=== PATIENT | female | born 1965 | race Two or more races ===

== ENCOUNTER 2022-09-16 14:20 | Inpatient (IN) | payer MEDICAID ==
[~2022-09-16] VITALS: Ht 149.9 cm; Wt 45.6 kg
[~2022-09-16 14:20] MED LIST: OMEP20CA74 PO
[2022-09-16 15:36] LABS: Basophils # (auto) 0 10 ^3/uL (0-0.2); Basophils % (auto) 0.3 % (0.0-2.0); Eosinophils # (auto) 0 10 ^3/uL (0-0.8); Eosinophils % (auto) 0.8 % (0.0-7.0); Lymphocytes # (auto) 1.4 10 ^3/uL (0.4-5.4); Lymphocytes % (auto) 32.5 % (10.0-50.0); Monocytes # (auto) 0.3 10 ^3/uL (0-1.3); Monocytes % (auto) 6.8 % (0.0-12.0); Neutrophils # (auto) 2.5 10 ^3/uL (1.6-8.6); Neutrophils % (auto) 59.6 % (37.0-80.0); Nucleated Red Blood Cells % 0.1 %; White Blood Cell 4.2 10^3/uL (4.4-10.8)
[2022-09-16 15:37] LABS: Hematocrit 26.7 % (36.0-46.0); Hemoglobin 8.9 g/dL (12.2-16.2); Mean Corpuscular Hemoglobin 31.3 pg (28.0-32.0); Mean Corpuscular Hgb Conc. 33.4 g/dL (32.0-36.0); Mean Corpuscular Volume 93.6 fL (80.0-100.0); Red Blood Cells 2.85 10^6/uL (4.0-5.20); Red Cell Distribution Width 14.5 % (11.8-14.3)
[2022-09-16 15:48] LABS: Albumin 3.4 g/dL (3.4-5.0); Calcium 8.5 mg/dL (8.5-10.1); Potassium 4.1 mmol/L (3.5-5.1)
[2022-09-16 15:50] VITALS: PULSE 61; RESP 10; O2SAT 95
[2022-09-16 15:52] LABS: BUN/Creatinine Ratio 14.7 (10.0-20.0); Bilirubin, Total 0.4 mg/dL (0.2-1.0); Total Protein 6.8 g/dL (6.4-8.2)
[2022-09-16] MEDS ORDERED: SODIUM CHLORIDE 0.9% 1,000 ML IV ONE (16:30)
[2022-09-16] MEDS ORDERED: ALBUTEROL SULF 2.5 MG/0.5ML(0.5%) NEB SOLN NEB ONE (16:45)
[2022-09-16] MEDS ORDERED: IPRATROPIUM BROM 0.5 MG/2.5ML INH SOL NEB ONE (16:45)
[2022-09-16] MEDS ORDERED: cefTRIAXone 1GM/50ML D5W 50 ML IV ONE (16:45)
[2022-09-16 17:27] LABS: Urine Bacteria NONE SEEN /hpf (None Seen); Urine Blood Negative /uL (Negative); Urine Mucus FEW (None Seen); Urine Specific Gravity 1.018 (1.001-1.035); Urine WBC 1 /hpf (0 - 5)
[2022-09-16 19:30] VITALS: PULSE 62; RESP 18; O2SAT 95
[2022-09-16] MEDS ORDERED: ALBUTEROL SULF 2.5 MG/0.5ML(0.5%) NEB SOLN NEB PRN (21:00)
[2022-09-16] MEDS ORDERED: HYDROcodone-ACET 5/325MG TAB PO PRN ×2 (21:00→22:30)
[2022-09-16] MEDS ORDERED: ONDANSETRON HCL 4 MG/2 ML VIAL IV PRN ×2 (21:00→22:30)
[2022-09-16] MEDS ORDERED: IPRATROPIUM BROM 0.5 MG/2.5ML INH SOL NEB PRN (21:00)
[2022-09-16] MEDS ORDERED: ACETAMINOPHEN 325 MG TAB PO PRN ×2 (21:00→22:30)
[2022-09-16] MEDS ORDERED: DOCUSATE SOD 100 MG CAP PO PRN (21:00)
[2022-09-16] MEDS ORDERED: DexAMETHasone SOD PHOS 10MG/1ML VIAL INJ IV ONE (21:00)
[2022-09-16] MEDS ORDERED: AZITHROMYCIN 500MG/ 250ML 250 ML IV ONE (21:00)
[2022-09-16 21:06] VITALS: BP 106/45; PULSE 73; RESP 19; O2SAT 93
[2022-09-16] MEDS ORDERED: NITROGLYCERIN 0.4 MG SL TAB SL PRN (22:30)
[2022-09-16] MEDS ORDERED: TEMAZEPAM 15 MG CAP PO PRN (22:30)
[2022-09-16] MEDS ORDERED: MORPHINE SULFATE INJ 2 MG/ml SYRG IV PRN ×2 (22:30)
[2022-09-16 22:49] VITALS: O2SAT 97
[2022-09-17] VITALS (10 sets, daily range): BP systolic 84–107; BP diastolic 42–69; PULSE 56–80; RESP 16–20; TEMP 97.6–98.4; O2SAT 91–100
[2022-09-17 06:39] LABS: Basophils # (auto) 0 10 ^3/uL (0-0.2); Eosinophils # (auto) 0 10 ^3/uL (0-0.8); Hematocrit 27.7 % (36.0-46.0); Hemoglobin 9.6 g/dL (12.2-16.2); Lymphocytes # (auto) 0.6 10 ^3/uL (0.4-5.4); Lymphocytes % (auto) 11.5 % (10.0-50.0); Mean Corpuscular Hemoglobin 32.5 pg (28.0-32.0); Mean Corpuscular Hgb Conc. 34.5 g/dL (32.0-36.0); Mean Corpuscular Volume 94.2 fL (80.0-100.0); Monocytes # (auto) 0.1 10 ^3/uL (0-1.3); Monocytes % (auto) 1.1 % (0.0-12.0); Neutrophils # (auto) 4.4 10 ^3/uL (1.6-8.6); Neutrophils % (auto) 87.4 % (37.0-80.0); Red Blood Cells 2.94 10^6/uL (4.0-5.20); Red Cell Distribution Width 14.1 % (11.8-14.3); White Blood Cell 5.1 10^3/uL (4.4-10.8)
[2022-09-17 06:49] LABS: Albumin 3.3 g/dL (3.4-5.0); Calcium 8.5 mg/dL (8.5-10.1); Potassium 4.1 mmol/L (3.5-5.1)
[2022-09-17 06:54] LABS: BUN/Creatinine Ratio 14.5 (10.0-20.0); Bilirubin, Total 0.2 mg/dL (0.2-1.0); Total Protein 6.9 g/dL (6.4-8.2)
[2022-09-17] MEDS ORDERED: LEVO25TA6 PO (09:37)
[2022-09-17] MEDS ORDERED: GAB100C PO (09:37)
[2022-09-17] MEDS ORDERED: TIZA-326 PO (09:37)
[2022-09-17] MEDS ORDERED: TIZANIDINE HYDROCHLORIDE PO SCH (10:00)
[2022-09-17] MEDS ORDERED: AZITHROMYCIN 500MG/ 250ML 250 ML IV SCH (10:00)
[2022-09-17] MEDS: levoFLOXacin 500MG 100 ML IV SCH (10:04)
[2022-09-17] MEDS: ASCORBIC ACID 500 MG TAB PO SCH ×2 (10:10→22:08)
[2022-09-17] MEDS: FAMOTIDINE (10MG/ML) 2ML VL IV SCH (10:10)
[2022-09-17] MEDS: MULTIPLE VITAMIN TAB PO SCH (10:10)
[2022-09-17] MEDS: LEVOTHYROXINE SODIUM 25 MCG TAB PO SCH (10:13)
[2022-09-17] MEDS: ZINC SULFATE 220mg CAP or TAB PO SCH (10:15)
[2022-09-17] MEDS ORDERED: GABAPENTIN 100 MG CAP PO SCH (14:00)
[2022-09-18 05:00] VITALS: BP 97/52; PULSE 59; RESP 18; TEMP 98; O2SAT 95
[2022-09-18 08:00] VITALS: BP 97/63; PULSE 58; RESP 18; TEMP 98; O2SAT 97
[2022-09-18] MEDS: levoFLOXacin 500MG 100 ML IV SCH (08:33)
[2022-09-18] MEDS: MULTIPLE VITAMIN TAB PO SCH (08:34)
[2022-09-18] MEDS: FAMOTIDINE (10MG/ML) 2ML VL IV SCH (08:34)
[2022-09-18] MEDS: ASCORBIC ACID 500 MG TAB PO SCH (08:34)
[2022-09-18] MEDS: LEVOTHYROXINE SODIUM 25 MCG TAB PO SCH (08:34)
[2022-09-18] MEDS: ZINC SULFATE 220mg CAP or TAB PO SCH (08:34)
[2022-09-18 09:00] VITALS: BP 103/68; PULSE 64; RESP 18; TEMP 98; O2SAT 97
[2022-09-18] MEDS ORDERED: AZIT500T66 PO (10:09)
[2022-09-18 10:10] VITALS: O2SAT 97
[2022-09-18 12:15] VITALS: BP 97/63; PULSE 64; RESP 18; TEMP 98; O2SAT 97
[2022-09-18 12:56] VITALS: BP 103/66; PULSE 62; RESP 18; TEMP 98.1; O2SAT 96
== END 2022-09-18 13:45 | disposition home or self-care (01) | DRG 137 ==
LOC: ER 14:20 → TELE 22:16 → TELE-CENTR 23:52
PROVIDERS: ADMIT Internal Medicine; ATTEND Internal Medicine
DX: J15.6 Pneumonia due to other Gram-negative bacteria (principal); J96.01 Acute respiratory failure with hypoxia; E03.9 Hypothyroidism, unspecified; J98.11 Atelectasis; D64.9 Anemia, unspecified; Z88.0 Allergy status to penicillin; Z82.49 Family history of ischemic heart disease and other diseases of the circulatory system; Z80.0 Family history of malignant neoplasm of digestive organs; Z79.899 Other long term (current) drug therapy; Z87.440 Personal history of urinary (tract) infections
CPT/HCPCS: 36415; 71045; 71250; 80053; 81001; 83605; 84484; 85025; 85379; 86850; 86900; 86901; 94640; 96361; 96365; 96366; 96367; G0378; J0696; J1100; J1956; J3490

== ENCOUNTER 2024-10-02 18:06 | Inpatient (IN) | payer MEDICAID ==
[~2024-10-02] VITALS: Ht 152.4 cm; Wt 51.1 kg
[~2024-10-02 18:06] MED LIST changes: +AZIT500T66 PO; +FERR1TAB8 PO; +LEVO25TA6 PO; +LEVO50TA7 PO; +TIZA1TAB20 PO
[2024-10-02] MEDS: SODIUM CHLORIDE 0.9% 1,000 ML IV ONE (18:52)
[2024-10-02 18:53] VITALS: PULSE 61; RESP 20; O2SAT 98
--- NOTE | 2024-10-02 18:55 | ED.PDOC ---
History of Present Illness HPI Comments 59 y/o [place]an speaking F presents for 2x week history of multiple dizzy spells and syncopal episodes, with associated headache, lightheadedness, fatigue, shortness of breath, and bilateral ear ringing sensations. Patient is a poor historian. She endorses on onset of symptoms whenever standing up prior to then passing out. Last syncopal episode is reported to have taken place, last night, while in the bathroom, where she admits to falling from a standing position and hitting her head. She was advised to come to ED to r/o anemia by her PCP. Patient has a relevant history of anemia, colitis, gastritis, PUD, and hypothyroidism. No recent sick contact, travel, injuries, or previous similar events endorsed. She denies any nausea, vomiting, known bleeding, fever, chills, or further associated symptoms. Time Seen by MD: 18:25 Primary Care Provider: Unknown Reviewed Notes: Nurses Notes, Medications, Allergies Allergies: Coded Allergies: Penicillins (Verified Allergy, Unknown, 01/20/16) Home Meds Active Scripts Azithromycin (Azithromycin) 500 Mg Tab, 500 MG PO DAILY for 7 Days, #7 TAB Prov:[employer] 09/18/22 Omeprazole (PRILOSEC) 20 Mg Cap, 20 MG PO DAILY for 30 Days Prov:SHIVA ROCHA N.P. 02/20/13 Reported Medications Levothyroxine Sodium (Levothyroxine Sodium) 25 Mcg Tab, 1 TAB PO DAILY 09/17/22 Information Source: Patient Mode of Arrival: Ambulatory Severity: Moderate Timing: Weeks Duration: Intermittent Prehospital treatment: None Review of Systems: REVIEW OF SYSTEMS: No fever, no chills, or fatigue HEENT: Bilateral ear ringing sensations, no sore throat, no earache, no congestion, no neck pain. Cardiac: Lightheadedness, syncope, no chest pain. No palpitations. Lungs: Shortness of breath, no cough. GI: No nausea, no vomiting, no diarrhea, no constipation, no abdominal pain : No dysuria, frequency, or urgency. No hematuria. Musculoskeletal: No joint pain , no joint swelling, no extremity edema. Skin: No rash, no itching. Neuro: Dizziness, headache, fatigue, no weakness Vital Signs Vital Signs Date Time Temp Pulse Resp B/P (MAP) Pulse Ox O2 Delivery O2 Flow Rate FiO2 6/11/25 18:53 61 20 98 Room Air* 0 21 10/02/24 18:53 98.0 109/61 (77) 98.0 Physical Exam General: Awake, alert and oriented. No acute distress. Skin: Skin in warm, dry and intact. Appropriate color for ethnicity, with exception of face, which is pallor. HEENT: The head is normocephalic and atraumatic. Face is pallor. Conjunctivae are clear without exudates or hemorrhage. Sclera is non-icteric. EOM are intact. No signs of nystagmus. Eyelids are normal in appearance without swelling or lesions. Dry lips. Neck: The neck is supple with normal range of motion. No JVD. Cardiac: Bradycardic heart rate but normal rhythm. No murmurs, gallops, or rubs are auscultated. Respiratory: No signs of respiratory distress. Lung sounds are clear in all lobes bilaterally without rales, rhonchi, or wheezes. Abdominal: Abdomen is soft, non-tender without distention, guarding or rigidity. Bowel sounds are present and normoactive in all four quadrants. Extremities: Upper and lower extremities are atraumatic in appearance without deformity or edema. Neurological: The patient is awake, alert and oriented to person, place, and time with normal speech. Speech is clear. There is no facial asymmetry. Psychiatric: Appropriate mood and affect. Good judgement and insight. 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 Was a procedure done?: No Differential Dx Considerations may include: Differential diagnoses considered include but are not limited to cardiac structural disease, arrhythmia, acute coronary syndrome, orthostasis, pulmonary embolism, dissection, seizure, basilar stroke, other. X-Ray, Labs, Meds, VS Vital Signs Date Time Temp Pulse Resp B/P (MAP) Pulse Ox O2 Delivery O2 Flow Rate FiO2 10/02/24 18:53 61 20 98 Room Air* 0 21 10/02/24 18:53 98.0 54 19 109/61 (77) 98 98.0 6/11/25 18:35 55 10/02/24 18:19 98.3 57 14 94/62 (73) 97 98.3 Lab Test 10/02/24 22:00 10/02/24 18:39 Range/Units Urine Color Dark-yellow Yellow Urine Clarity Clear Clear Urine pH 5.5 5.0-9.0 Urine Specific [place] 1.029 1.001-1.035 Urine Protein Trace H Negative Urine Ketones Trace Negative Urine Blood Negative Negative /uL Urine Nitrite Negative Negative Urine Bilirubin Negative Negative Urine Urobilinogen Normal Negative mg/dL Urine Leukocyte Esterase Negative Negative /uL Urine RBC 17 0 - 4 /hpf Urine Microscopic WBC 1 0-5 /HPF Urine Squamous Epithelial Cells Few <5 /hpf Urine Bacteria None seen None Seen /hpf Urine Mucus Few None Seen Urine Yeast (Budding) Moderate None Seen /hpf Urine Glucose Normal Normal mg/dL White Blood Count 4.5 4.4-10.8 10^3/uL Red Blood Count 3.32 L 4.0-5.20 10^6/uL Hemoglobin 10.5 L 12.2-16.2 g/dL Hematocrit 31.7 L 36.0-46.0 % Mean Corpuscular Volume 95.2 80.0-100.0 fL Mean Corpuscular Hemoglobin 31.6 28.0-32.0 pg Mean Corpuscular Hemoglobin Concent 33.2 32.0-36.0 g/dL Red Cell Distribution Width 14.4 H 11.8-14.3 % Platelet Count 297 140-450 10^3/uL Mean Platelet Volume 7.4 6.9-10.8 fL Neutrophils (%) (Auto) 61.5 37.0-80.0 % Lymphocytes (%) (Auto) 31.2 10.0-50.0 % Monocytes (%) (Auto) 6.3 0.0-12.0 % Eosinophils (%) (Auto) 0.7 0.0-7.0 % Basophils (%) (Auto) 0.3 0.0-2.0 % Neutrophils # (Auto) 2.8 1.6-8.6 10 ^3/uL Lymphocytes # (Auto) 1.4 0.4-5.4 10 ^3/uL Monocytes # (Auto) 0.3 0-1.3 10 ^3/uL Eosinophils # (Auto) 0 0-0.8 10 ^3/uL Basophils # (Auto) 0 0-0.2 10 ^3/uL Nucleated Red Blood Cells 0.1 % Sodium Level 143 136-145 mmol/L Potassium Level 3.5 3.5-5.1 mmol/L Chloride Level 109 H 98-107 mmol/L Carbon Dioxide Level 25 20-31 mmol/L Anion Gap 9 5-15 Blood Urea Nitrogen 21 9-23 mg/dL Creatinine 0.87 0.550-1.02 mg/dL Glomerular Filtration Rate Calc 76 >90 mL/min BUN/Creatinine Ratio 24.1 H 10.0-20.0 Serum Glucose 90 74-106 mg/dL Calcium Level 9.9 8.7-10.4 mg/dL Iron Level Pending Total Iron Binding Capacity Pending Percent Iron Saturation Pending Total Bilirubin 0.5 0.2-1.0 mg/dL Aspartate Amino Transferase (AST) 13 13-40 U/L Alanine Aminotransferase (ALT) 11 7-40 U/L Alkaline Phosphatase 117 H 46-116 U/L Troponin I High Sensitivity < 3 L </=34 ng/L B-Type Natriuretic Peptide 24.45 0-100 pg/mL Total Protein 7.0 5.7-8.2 g/dL Albumin 4.4 3.2-4.8 g/dL Thyroid Stimulating Hormone (TSH) 1.40 0.55-4.78 uIU/mL Current Medications Medications (Trade) Dose Ordered Sig/Nancy Route Start Time Stop Time Status Last Admin Sodium Chloride 1,000 ml @ 1,000 mls/hr Q1H ONCE IV 10/02/24 18:30 10/02/24 19:29 DC 10/02/24 18:52 Time of 1ST Reevaluation: 18:55 Reevaluation 1ST: Unchanged Patient Education/Counseling: Treatment, Other (Need for admission) Family Education/Counseling: No Family Present Departure 1 Departure Time of Disposition: 22:21 Impression: Primary Impression: Syncope Disposition: HOME / SELF CARE / HOMELESS Condition: Stable Comments 59 year old female with multiple syncopal episode last night and continued dizziness throughout the day. Patient admitted to hospitalist service for further treatment, evaluation and monitoring. Extensive evaluation was performed in attempt to identify or rule out: (See differential diagnosis section) The following tests were ordered, and results were reviewed by me and discussed with patient: (See diagnostic results section) The following test were independently interpreted by me: EKG I reviewed and agreed with the following test results read by other providers: N/A I reviewed the following notes from the pt's past medical encounters: September 03, 2013 and September 16, 2022 encounters for acute intractable abdominal pain and pneumonia, respectively. Additional information was gathered from interviewing the following independent historians: N/A Discussion of management or test interpretation with external physician/other qualified health health care consultant: Chest x-ray Addressed an acute or chronic illness that poses a threat to life or bodily function: Syncope, anemia Decision regarding hospitalization or escalation of hospital level of care: Risk and benefits of admission for further treatment of patient's condition was considered. Due to patient's current clinical condition, high risk of decline and poor outcome if discharged and need for further inpatient management and monitoring, patient will be admitted to the hospital. Drug therapy requiring intensive monitoring for toxicity: N/A Parenteral controlled substances: N/A Decision regarding elective major surgery with identified patient or procedure risk factors: N/A Decision regarding emergency major surgery: N/A Decision not to resuscitate or to de-escalate care because of poor prognosis: N/A Diagnosis or treatment significantly limited by social determinants of health: N/A Critical Care Note Critical Care Time?: No Stability Stability form required: No Heart Score Heart Score: Heart Score Response (Comments) Value History N/A 0 EKG N/A 0 Age N/A 0 Risk Factors N/A 0 Troponin N/A 0 Total 0 I personally scribed for KARL VARGHESE MD ([email or web address]) on 10/02/24 at 18:55. Electronically submitted by Kyaw Elaine ([email or web address]). KARL VARGHESE MD Oct 02, 2024 18:55
[2024-10-02 19:04] LABS: Basophils # (auto) 0 10 ^3/uL (0-0.2); Basophils % (auto) 0.3 % (0.0-2.0); Eosinophils # (auto) 0 10 ^3/uL (0-0.8); Eosinophils % (auto) 0.7 % (0.0-7.0); Hematocrit 31.7 % (36.0-46.0); Hemoglobin 10.5 g/dL (12.2-16.2); Lymphocytes # (auto) 1.4 10 ^3/uL (0.4-5.4); Lymphocytes % (auto) 31.2 % (10.0-50.0); Mean Corpuscular Hemoglobin 31.6 pg (28.0-32.0); Mean Corpuscular Hgb Conc. 33.2 g/dL (32.0-36.0); Mean Corpuscular Volume 95.2 fL (80.0-100.0); Monocytes # (auto) 0.3 10 ^3/uL (0-1.3); Monocytes % (auto) 6.3 % (0.0-12.0); Neutrophils # (auto) 2.8 10 ^3/uL (1.6-8.6); Neutrophils % (auto) 61.5 % (37.0-80.0); Nucleated Red Blood Cells % 0.1 %; Platelet Count (auto) 297 10^3/uL (140-450); Red Blood Cells 3.32 10^6/uL (4.0-5.20); Red Cell Distribution Width 14.4 % (11.8-14.3); White Blood Cell 4.5 10^3/uL (4.4-10.8)
[2024-10-02 19:21] LABS: Alanine Aminotransferase 11 U/L (7-40); Albumin 4.4 g/dL (3.2-4.8); Anion Gap 9 (5-15); Aspartate Aminotransferase 13 U/L (13-40); BUN/Creatinine Ratio 24.1 (10.0-20.0); Blood Urea Nitrogen 21 mg/dL (9-23); Calcium 9.9 mg/dL (8.7-10.4); Carbon Dioxide 25 mmol/L (20-31); Glucose 90 mg/dL (74-106); Sodium 143 mmol/L (136-145)
[2024-10-02 19:22] LABS: Bilirubin, Total 0.5 mg/dL (0.2-1.0)
[2024-10-02 19:23] LABS: Alkaline Phosphatase 117 U/L (46-116); Chloride 109 mmol/L (98-107); Potassium 3.5 mmol/L (3.5-5.1)
--- NOTE | 2024-10-02 21:16 | DVH ---
EXAM: XY CHEST XRAY 1 VIEW CLINICAL HISTORY: syncope TECHNIQUE: Single AP view of the chest WID: COMPARISON: XY CHEST XRAY 1 VIEW on DOS: 09/16/22 FINDINGS: Lines and tubes: None Chest: The heart size and pulmonary vasculature is within normal limits. No pleural effusion, pneumothorax, or consolidation. The osseous structures are grossly intact. Healed posterior left 8th rib fracture. IMPRESSION: No acute cardiopulmonary abnormality.
[2024-10-02 22:06] LABS: Urine Bacteria None Seen /hpf (None Seen)
[2024-10-02 23:17] LABS: Urine Blood Negative /uL (Negative); Urine Budding Yeast MODERATE /hpf (None Seen); Urine Clarity Clear (Clear); Urine Color Dark-Yellow (Yellow); Urine Mucus FEW (None Seen); Urine Protein, UAD TRACE (Negative); Urine Specific Gravity 1.029 (1.001-1.035); Urine Squamous Epithelial Cell FEW /hpf (<5); Urine Urobilinogen Normal (Negative); Urine WBC 1 /HPF (0-5); Urine pH 5.5 (5.0-9.0)
[2024-10-02] MEDS ORDERED: DOCUSATE SOD 100 MG CAP PO PRN (23:30)
[2024-10-02] MEDS ORDERED: MORPHINE SULFATE INJ 2 MG/ml SYRG IV PRN (23:30)
[2024-10-02] MEDS ORDERED: NITROGLYCERIN 0.4 MG SL TAB SL PRN (23:30)
[2024-10-02] MEDS ORDERED: ONDANSETRON HCL 4 MG/2 ML VIAL IV PRN (23:30)
[2024-10-03] VITALS (7 sets, daily range): BP systolic 94–138; BP diastolic 52–71; PULSE 50–75; RESP 14–18; TEMP 97.5–98.3; O2SAT 96–99
--- NOTE | 2024-10-03 00:19 | DVH ---
CLINICAL HISTORY: Rule out acute stroke TECHNIQUE: Helical imaging carried out from skull base to vertex without intravenous contrast. This e xam was performed according to our departmental dose optimization program. Up-to-date CT equipment an d radiation dose reduction techniques are utilized as appropriate. CTDIVol: 52.87 mGy DLP: 935.07 mGy-cm WID: COMPARISON: None FINDINGS: Mild patchy low attenuation in the cerebral white matter consistent with nonspecific white matter dis ease. The ventricles and subarachnoid spaces are normal in size and configuration. There is no midline wilfred ft or mass effect. The mata white matter interfaces are maintained. The basal cisterns are patent. Th ere is no evidence of acute intracranial hemorrhage or extra-axial fluid collection. The mastoid air cells and visualized paranasal sinuses are well-aerated aside from mild frothy secretions in the righ t sphenoid sinus and mild mucosal thickening of the right maxillary sinus. IMPRESSION: 1. No acute intracranial abnormality. 2. Mild nonspecific white matter disease, likely related to chronic small-vessel ischemia.
[2024-10-03 00:50] LABS: % Iron Saturation 27.9 % (15-50)
[2024-10-03] MEDS: SODIUM CHLORIDE 0.9% 1,350 ML IV ONE (00:50)
[2024-10-03] MEDS: SODIUM CHLORIDE 0.9% 1,000 ML IV SCH (00:51)
[2024-10-03] MEDS: PANTOPRAZOLE 40 MG/10 ML VIAL INJ IV SCH (00:51)
[2024-10-03] MEDS: ATROPINE SULF 1 MG/10ml SYR IV ONE (02:30)
--- NOTE | 2024-10-03 02:38 | DVH ---
Clinical History: rule out DVT, high d dimer with lower Wells Score Comparison: None Technique: Duplex Doppler evaluation of the deep venous system of the right and left lower extremity from the co mmon femoral vein to the popliteal vein including color Doppler and spectral/pulsed waveform analysis was performed. Findings: The common femoral vein demonstrates appropriate compressibility and waveform variability. There is compressibility/patency of the great saphenous vein at the proximal thigh. The femoral vein demonstrates appropriate compressibility and waveform variability. The deep femoral vein demonstrates appropriate compressibility and waveform variability. The popliteal vein demonstrates appropriate compressibility and waveform variability. There is normal compressibility at the tibioperoneal trunk. Impression: 1. No right or deep venous thrombosis.
--- NOTE | 2024-10-03 02:41 | DVHHPRES ---
History of Present Illness Resident Creating Document: VANESSA GALLEGOS RESIDENT History of Present Illness Ms. Han, a 59-year-old [place]ian-speaking female with a history of anemia, gastrointestinal disorders (including PUD, gastritis, colitis), hypothyroidism, chronic back pain, likely osteoarthritis, Hernia Repair and Left oophorectomy presents with a two-week history of recurrent dizziness and syncopal episodes, typically triggered by standing, and accompanied by headache, lightheadedness, fatigue, shortness of breath, and bilateral ear ringing. Her most recent episode occurred the previous night in the bathroom, resulting in a fall and head injury. She denies nausea, vomiting, bleeding, fever, or recent illness. Due to concerns for underlying acute neurovascular conditions, she was referred to the ED by her PCP and has been admitted for further evaluation and monitoring. Admitted on telemetry floor, for continued dizziness and multiple syncopal epis odes, with differential diagnoses including syncope (cardiac or neurovascular), structural heart disease, hypovolemia, arrhythmia, acute coronary syndrome, orthostatic hypotension, posterior column disease, TIA, cerebellar/inner ear disorders, pulmonary embolism, aortic dissection, seizure, and basilar stroke. PCP Dr. Leiva, Pain Specialist Dr. Fernandez. Extremely poor historian. Past Medical History anemia, gastrointestinal disorders (including PUD, gastritis, colitis), hypothyroidism, chronic back pain, likely osteoarthritis Past Surgical History Hernia Repair and Left oophorectomy Family History: Other (non contributory ) Smoke: No ALCOHOL: none Drugs: None Lives: with Family (with sons. ) Domestic Violence: Neg Review of Systems Constitutional: Yes: Malaise; No: Fever, Chills, Sweats, Weakness, Other Eyes: No: Pain, Vision change, Conjunctivae inflammation, Eyelid inflammation, Other, Redness ENT: No: Ear pain, Ear discharge, Nose pain, Nose discharge, Nose congestion, Mouth pain, Mouth swelling, Throat pain, Throat swelling, Other Respiratory: No: Cough, Dry, Shortness of breath, SOB with excertion, Wheezing, Hemoptysis, Pleuritic Pain, Sputum, Wheezing, Other Cardiovascular: Lt Headedness; No: Chest Pain, Palpitations, Orthopnea, Paroxysmal Noc. Dyspnea, Edema, Other Gastrointestinal: No: Nausea, Vomiting, Abdominal Pain, Diarrhea, Constipation, Melena, Hematochezia, Other Genitourinary: No Dysuria, No Frequency, No Incontinence, No Hematuria, No Retention, No Other Musculoskeletal: back pain; No: other, neck pain, shoulder pain, arm pain, hand pain, leg pain, foot pain Skin: No: Rash, Lesions, Jaundice, Bruising, Other Neurological: Other (syncopy, dizzziness, presyncopy); No: Weakness, Numbness, Incoordination, Change in speech, Confusion, Seizures Allergies: Coded Allergies: Penicillins (Verified Allergy, Unknown, 01/20/16) Medications Current Medications Medications Dose Ordered Sig/Nancy Route Start Time Stop Time Status Last Admin Dose Admin Sodium Chloride 1,000 ml @ 120 mls/hr Q8H20M IV 10/02/24 23:30 Ondansetron HCl 4 mg Q4HP PRN IV 10/02/24 23:30 Docusate Sodium 100 mg BIDPRN PRN PO 10/02/24 23:30 Acetaminophen 650 mg Q6HP PRN PO 10/02/24 23:30 Morphine Sulfate 2 mg Q4HPRN PRN IV 10/02/24 23:30 Nitroglycerin 0.4 mg Q5MINP PRN SL 10/02/24 23:30 Morphine Sulfate 2 mg Q30M PRN IV 10/02/24 23:30 Levothyroxine Sodium 50 mcg DAILY@0630 IV 10/03/24 06:30 Pantoprazole Sodium 40 mg DAILY@BREAKFAST IV 10/03/24 00:00 10/03/24 00:51 40 MG Exam Vital Signs Vital Signs Date Time Temp Pulse Resp B/P (MAP) Pulse Ox O2 Delivery O2 Flow Rate FiO2 10/02/24 18:53 61 20 98 Room Air* 0 21 10/02/24 18:53 98.0 109/61 (77) 98.0 General Appearance: Alert, Oriented X3, Cooperative, moderate distress HEENT: Atraumatic, PERRLA, EOMI, Mucous membr. moist/pink Respiratory: Clear to auscultation, Normal air movement, Other (on room air ) Cardiovascular: Regular rate, Normal S1, Normal S2, No murmurs, Other (NSR, HR low normal in 50s/min) Abdominal: Normal bowel sounds, Soft, No tenderness, No hepatospenomegaly, No masses Extremities: No clubbing, No cyanosis, No edema, Normal pulses, No tenderness/swelling Skin: No rashes, No breakdown, No significant lesion Psych/Mental Status: Mental status NL, Mood NL, Other Labs/Xrays Labs Test 10/02/24 22:00 10/02/24 18:39 Range/Units Urine Color Dark-yellow Yellow Urine Clarity Clear Clear Urine pH 5.5 5.0-9.0 Urine Specific [place] 1.029 1.001-1.035 Urine Protein Trace H Negative Urine Ketones Trace Negative Urine Blood Negative Negative /uL Urine Nitrite Negative Negative Urine Bilirubin Negative Negative Urine Urobilinogen Normal Negative mg/dL Urine Leukocyte Esterase Negative Negative /uL Urine RBC 17 0 - 4 /hpf Urine Microscopic WBC 1 0-5 /HPF Urine Squamous Epithelial Cells Few <5 /hpf Urine Bacteria None seen None Seen /hpf Urine Mucus Few None Seen Urine Yeast (Budding) Moderate None Seen /hpf Urine Glucose Normal Normal mg/dL White Blood Count 4.5 4.4-10.8 10^3/uL Red Blood Count 3.32 L 4.0-5.20 10^6/uL Hemoglobin 10.5 L 12.2-16.2 g/dL Hematocrit 31.7 L 36.0-46.0 % Mean Corpuscular Volume 95.2 80.0-100.0 fL Mean Corpuscular Hemoglobin 31.6 28.0-32.0 pg Mean Corpuscular Hemoglobin Concent 33.2 32.0-36.0 g/dL Red Cell Distribution Width 14.4 H 11.8-14.3 % Platelet Count 297 140-450 10^3/uL Mean Platelet Volume 7.4 6.9-10.8 fL Neutrophils (%) (Auto) 61.5 37.0-80.0 % Lymphocytes (%) (Auto) 31.2 10.0-50.0 % Monocytes (%) (Auto) 6.3 0.0-12.0 % Eosinophils (%) (Auto) 0.7 0.0-7.0 % Basophils (%) (Auto) 0.3 0.0-2.0 % Neutrophils # (Auto) 2.8 1.6-8.6 10 ^3/uL Lymphocytes # (Auto) 1.4 0.4-5.4 10 ^3/uL Monocytes # (Auto) 0.3 0-1.3 10 ^3/uL Eosinophils # (Auto) 0 0-0.8 10 ^3/uL Basophils # (Auto) 0 0-0.2 10 ^3/uL Nucleated Red Blood Cells 0.1 % Sodium Level 143 136-145 mmol/L Potassium Level 3.5 3.5-5.1 mmol/L Chloride Level 109 H 98-107 mmol/L Carbon Dioxide Level 25 20-31 mmol/L Anion Gap 9 5-15 Blood Urea Nitrogen 21 9-23 mg/dL Creatinine 0.87 0.550-1.02 mg/dL Glomerular Filtration Rate Calc 76 >90 mL/min BUN/Creatinine Ratio 24.1 H 10.0-20.0 Serum Glucose 90 74-106 mg/dL Calcium Level 9.9 8.7-10.4 mg/dL Iron Level 84 50-170 ug/dL Total Iron Binding Capacity 301 250-425 ug/dL Percent Iron Saturation 27.9 15-50 % Total Bilirubin 0.5 0.2-1.0 mg/dL Aspartate Amino Transferase (AST) 13 13-40 U/L Alanine Aminotransferase (ALT) 11 7-40 U/L Alkaline Phosphatase 117 H 46-116 U/L Troponin I High Sensitivity < 3 L </=34 ng/L B-Type Natriuretic Peptide 24.45 0-100 pg/mL Total Protein 7.0 5.7-8.2 g/dL Albumin 4.4 3.2-4.8 g/dL Thyroid Stimulating Hormone (TSH) 1.40 0.55-4.78 uIU/mL Assessment/Plan Assessment/Plan Assessment: #Hemorrhagic stroke ruled out with NCCT #chronic small-vessel ischemia but CT -ve for large anomaly, MRI and neurology eval pending. #Recurrent syncope: syncope (cardiac or neurovascular), structural heart disease, hypovolemia, arrhythmia, acute coronary syndrome, orthostatic hypotension, posterior column disease, TIA, cerebellar/inner ear disorders, pulmonary embolism, aortic dissection, seizure, and basilar stroke #Recurrent presyncope episodes, high fall risk, fall precautions and bedrest for now. Check orthostatic vitals. #Unintentional weight loss, 10 lb loss in 1-2 months > lower BMI, postprandial dysphagia #Autonomic dysfunction to rule out. Cortisol AM check. #Iatrogenic causes include high dose of opioids, and anticholinergics. #Dehydration, mild to moderate, iv fluid and maintenance with NS #Hypothyroidism, normal TSH, on oral Levothyroxine 50 mcg daily #ACS ruled out with -ve trops, normal EKGs. CXR unremarkable. #Known allergy to Penicillin's, avoid PCN groups #Surgical h/o Hernia Repair #Surgical h/o Left oophorectomy #Chronic anemia, iron deficiency anemia on iron oral 325 daily #Chronic Back pain on Tylenol, Tangent 7.5. 235, lidocaine 5%, Tizanidine 2mg bid, , docusate, will consider lower dose of opioids. #history of anemia #H/o PUD, gastritis, colitis on home omeprazole 20 daily #hiatal hernia 34-36 cm last EGD Upper Endoscopy 09/05/13, cxr grossly normal #likely osteoarthritis #?opioid overuse to rule out, lower opioid dose and titrate up gradually #Mild elevation of D Dimer #UTI ruled out #Irritable bowel syndrome on po linzess 145 daily Plan: #Possible TIA, MRI, echo and carotid doppler, PT eval pending. Neurology consulted. UDS, EtOH, B12, lipid panel and HbA1c #Consider GI consult, known previous patient of Dr. Machado, did not follow up after 2013 as per patient, NPO in anticipation of possible EGD #Keep on Telemetry, 12 lead EKG, comparatively softer bp and low normal HR in 50s with low normal RR, look for sinus pauses and arrhythmia, 1 dose of iv atropine 0.5 #Cardiac causes of recurrent syncope if found, needs cardiac consult, will hold for now. #Repeat neurocheks + vestibulo cochlear exams for interval changes, orthostatic, differential arm BP. #IV fluid with maintain with NS #Baseline low HR , EKG 2012 in chart HR 40s , ?conditioning, continue telemetry check morning cortisol, no prior syncope #Wells score for DVT 1 + D dimer elevation. Check US b/l lower limbs #Levothyroxine to continue, as NPO with change to IV equivalent dose for now. #Iron Panel with Ferritin , FOBT pending #GERD/PUD IV ppi daily as GI prophylaxis #NPO till bulbar weakness ruled out, swallow eval for safety from aspiration #Add oral Meds if aspiration risk is eliminated. #Fall,aspiration and seizure precautions, bedrest and avoid driving or heavy machinery. #SCDs, will avoid sc Lovenox to avoid bleeding/hemorrhagic change in brain parenchyma in a fall prone elderly Code Status: Full code, goals of care and care plan discussed with the help of a medical dimpling machine operator needing 41 minutes. Patient is admitted to telemetry floor and pending workup for cardiac causes syncope and neurological evaluation. Discussed with Dr. Feliciano. Plan discussed with: Patient My Orders Orders - VANESSA GALLEGOS RESIDENT Procedure Category Date Status Time Head Without Contrast CT 10/02/24 Resulted 23:09 Admit ADMIT 10/02/24 Transmitted 23:29 Allergies BENJA 10/02/24 In Process 23:29 Code Status CODE 10/02/24 Transmitted 23:29 Sodium Chloride 0.9% PHA 10/02/24 In Process 23:30 Ondansetron Hcl PHA 10/02/24 In Process (Zofran) 23:30 Docusate Sodium PHA 10/02/24 In Process Capsule (Colace 23:30 Fall Risk Precautions BENJA 10/02/[address] 23:29 Complete Blood Count LAB 10/03/24 Logged 04:00 Comprehensive LAB 10/03/24 Logged Metabolic Panel 04:00 Npo (Nothing By DIET 10/03/24 Transmitted Mouth) Diet Breakfast Pt Request For Service PT 10/02/24 Logged 23:29 * Swallow Request ST 10/02/24 Transmitted 23:29 Echo 2d Mode Cardiac US 10/02/24 Logged DOP 23:29 Carotid Duplx W Color US 10/02/24 Taken DOP 23:29 Condition: Serious BENJA 10/02/24 In Process 23:29 Acetaminophen Tablet PHA 10/02/24 In Process (Tylenol Tablet) 23:30 Bedside Commode BENJA 10/02/24 In Process 23:29 Maintain Bed Rest BENJA 10/02/24 In Process 23:29 Morphine Sulfate PHA 10/02/24 In Process Injection 23:30 Sequential BENJA 10/02/24 In Process Compression Device Nitroglycerin PHA 10/02/24 In Process Sublingual (Ntrostat 23:30 Morphine Sulfate PHA 10/02/24 In Process Injection 23:30 Oxygen By Nasal RT 10/02/24 Transmitted Cannula 23:29 Stat Ekg For Chest BENJA 10/02/24 In Process Pain 23:29 Notify Md Of Changes BENJA 10/02/24 In Process From Base 23:29 Ornamental Ironworker For BENJA 10/02/24 In Process 24 Hours 23:29 Emergency Dysrhythmia BENJA 10/02/24 In Process Protocol 23:29 Rhythm Strips Once BENJA 10/02/24 In Process Every Shift 23:29 Fall Precautions BENJA 10/02/24 In Process Initiated 23:47 Fall Risk Precautions [facility] 10/02/[address] 23:47 Orthostatic Vital ORDERS 10/02/24 Transmitted Signs 23:47 Communication Order ORDERS 10/02/24 Transmitted 23:47 Levothyroxine PHA 10/03/24 In Process Injection (Synthroid 06:30 Cortisol Am LAB 10/02/24 Logged 23:50 Stool Occult Blood LAB 10/02/24 Logged 23:50 Pantoprazole PHA 10/03/24 In Process (Protonix) 00:00 Vitamin B12 LAB 10/02/24 Logged 23:58 * Neurology Consult CONS 10/03/24 Transmitted 00:00 Brain Head Wo Contrast MRI 10/04/24 Logged 07:00 Ferritin LAB 10/03/24 Logged 01:37 Bilat Lower Dvt US 10/03/24 Logged 01:40 Date of Service: Oct 03, 2024 Billing Provider: NEMESIO FELICIANO MD Common Visit Codes: 11211-QCDJPHM INP/OBS CARE (HIGH) Secondary Visit Codes: 89933-ACRSXFIN CARE PLAN 30 MINUTES VANESSA GALLEGOS RESIDENT Oct 03, 2024 02:41
--- NOTE | 2024-10-03 03:32 | DVH ---
Carotid Duplex Clinical History: Rule out significant stenosis Comparison: None Technique: Duplex Doppler evaluation of the extracranial carotid and vertebral arteries including color Doppler and spectral/pulsed waveform analysis was performed. Findings: RIGHT SIDE: The peak systolic velocities are 59 cm/s in the CCA, 116 cm/s in the ICA. The ICA/CCA ratio is 2.0. The external carotid artery is patent with peak systolic velocity of 50 cm/s proximally. There is appropriate antegrade flow in the right vertebral artery. LEFT SIDE: The peak systolic velocities are 49 cm/s in the CCA, 130 cm/s in the ICA. The ICA/CCA ratio is 2.6. The external carotid artery is patent with peak systolic velocity of 45 cm/s proximally. There is appropriate antegrade flow in the left vertebral artery. IMPRESSION: 50-69% stenosis of the left internal carotid artery based on peak systolic velocity criteria. No hemodynamically significant stenosis on the right. Reference: Radiology 2003; 229:340-346 Normal ICA PSV is <125 cm/sec and no plaque or intimal thickening is visible sonographically addition al criteria include ICA/CCA PSV ratio <2.0 and ICA EDV <40 cm/sec <50% ICA stenosis ICA PSV is <125 cm/sec and plaque or intimal thickening is visible sonographically additional criteria include ICA/CCA PSV ratio <2.0 and ICA EDV <40 cm/sec 50-69% ICA stenosis ICA PSV is 125-230 cm/sec and plaque is visible sonographically additional criter ia include ICA/CCA PSV ratio of 2.0-4.0 and ICA EDV of 40-100 cm/sec 70% ICA stenosis but less than near occlusion ICA PSV is >230 cm/sec and visible plaque and luminal narrowing are seen at mata-scale and color Doppler ultrasound (the higher the Doppler parameters lie above the threshold of 230 cm/sec, the greater the likelihood of severe disease) additional criteria include ICA/CCA PSV ratio >4 and ICA EDV >100 cm/sec
[2024-10-03 05:50] LABS: Amphetamine Screen, Urine Neg (NEGATIVE); Barbiturate Scree,Urine Neg (NEGATIVE); Benzodiazephine Screen, Urine Neg (NEGATIVE); Cannabinoid Screen, Urine Neg (NEGATIVE); Cocaine Screen, Urine Neg (NEGATIVE); Opiate Scree,Urine Neg (NEGATIVE); Phencyclidine Screen, Urine Neg (NEGATIVE)
[2024-10-03] MEDS: LEVOTHYROXINE SODIUM 100 MCG/5 ML INJ IV SCH (06:29)
[2024-10-03 08:32] LABS: Basophils # (auto) 0 10 ^3/uL (0-0.2); Basophils % (auto) 0.4 % (0.0-2.0); Eosinophils # (auto) 0.1 10 ^3/uL (0-0.8); Eosinophils % (auto) 1.4 % (0.0-7.0); Hematocrit 32.2 % (36.0-46.0); Hemoglobin 10.7 g/dL (12.2-16.2); Lymphocytes # (auto) 1.1 10 ^3/uL (0.4-5.4); Lymphocytes % (auto) 28.5 % (10.0-50.0); Mean Corpuscular Hemoglobin 31.9 pg (28.0-32.0); Mean Corpuscular Hgb Conc. 33.3 g/dL (32.0-36.0); Mean Corpuscular Volume 95.8 fL (80.0-100.0); Monocytes # (auto) 0.3 10 ^3/uL (0-1.3); Monocytes % (auto) 7.3 % (0.0-12.0); Neutrophils # (auto) 2.3 10 ^3/uL (1.6-8.6); Neutrophils % (auto) 62.4 % (37.0-80.0); Platelet Count (auto) 232 10^3/uL (140-450); Red Blood Cells 3.36 10^6/uL (4.0-5.20); Red Cell Distribution Width 14.1 % (11.8-14.3); White Blood Cell 3.7 10^3/uL (4.4-10.8)
[2024-10-03 11:17] LABS: Alanine Aminotransferase 13 U/L (7-40); Albumin 4.1 g/dL (3.2-4.8); Alkaline Phosphatase 108 U/L (46-116); Anion Gap 9 (5-15); Aspartate Aminotransferase 18 U/L (0-34); BUN/Creatinine Ratio 27.1 (10.0-20.0); Blood Urea Nitrogen 16 mg/dL (9-23); Carbon Dioxide 24 mmol/L (20-31); Glucose 85 mg/dL (74-106); Sodium 143 mmol/L (136-145); Total Protein 6.4 g/dL (5.7-8.2)
[2024-10-03 11:18] LABS: Bilirubin, Total 0.5 mg/dL (0.2-1.0)
[2024-10-03 11:21] LABS: Calcium 8.7 mg/dL (8.7-10.4); Chloride 110 mmol/L (98-107); Potassium 3.3 mmol/L (3.5-5.1)
[2024-10-03] MEDS: IOHEXOL 350 MG/ML 100ML IJ ONE (13:21)
--- NOTE | 2024-10-03 13:33 | DVHSR ---
APPROVED REPORT EXAM: Two-dimensional and M-mode echocardiogram with Doppler and color Doppler. Blood Pressure: 94/62 mmHg INDICATION R/o structural disease RISK FACTORS Height: 5', Weight: 93 DIMENSIONS LVDd4.4 (3.8-5.7cm)LA (2D)4.3 (1.9-4.0cm)Aortic Root2.5 (2.0-3.7cm) LVDs2.9 (2.5-4.0cm)LA (MM) (1.9-4.0cm)Aortic Cusp Exc1.4 (1.5-2.0cm) EF (%) 63.0 (55-70%)Rt. Atrium3.6 (1.9-4.0cm)Asc. Aorta cm IVSd0.6 (0.7-1.1cm)RV (D)3.1 (1.8-2.4cm) PWd0.7 (0.7-1.1cm) Mitral Valve MitralMitral Stenosis E wave0.80m/sMV Mean GR.mmHg A wave1.00m/sMV Peak GR.mmHg E/A ratio0.82D MVAcm2 DECEL [id number] 1/2 Timems Aortic Valve Aortic ValveAortic Stenosis V11.23m/Chelsie Mean GR.3mmHg V21.29m/Chelsie Peak GR.7mmHg LVOT Diameter1.8 (1.8-2.4cm)Doppler AVA2.43cm2 Pulmonic Valve V20.82m/s Tricuspid Valve TR Velocity2.54m/s [id number] Conclusion lvef 66% grade 1 diastolic dysfunction normal rv function left atrium enlarged no severe valve abnormaliteis noted
--- NOTE | 2024-10-03 14:16 | DVH ---
PROCEDURE: MRI BRAIN HEAD WO CONTRAST Indication: R/O stroke COMPARISON: 10/02/2024 TECHNIQUE: Multiplanar multisequence images of the brain are obtained. FINDINGS: There is no abnormal diffusion restriction. Mild periventricular and subcortical white matter T2, FLA IR hyperintense changes. There is no intracranial hemorrhage. No extra-axial fluid collection, mass e ffect or midline shift. The ventricles are midline and normal in size. The cisterns are patent. Whitley l intracranial flow voids are preserved. No abnormal susceptibility signal. The mastoids are well pneumatized. There is mild mucosal thickening of the right maxillary sinus The visualized orbits are unremarkable. IMPRESSION: 1. No acute cerebrovascular ischemia. 2. Mild chronic microvascular ischemic changes.
[2024-10-03] MEDS: ACETAMINOPHEN 325 MG TAB PO PRN (14:22)
--- NOTE | 2024-10-03 15:26 | DVH ---
EXAM: CT CT ANGIO NECK CONTRAST INDICATION: Carotid stenosis EXAM DATE: 10/03/2024 02:50 PM COMPARISON: None TECHNIQUE: A noncontrast dataset was obtained. Subsequently, a volumetric data acquisition of the ne ck was obtained during the arterial phase of enhancement. A total of 60 mL of Omnipaque 350 was admin istered intravenously. One or more of the following radiation dose reduction techniques were used for this examination: automated exposure control, adjustment of the mA and/or kV according to patient si ze, use of iterative reconstruction technique. 3-D postprocessing is performed by technologist including MIP imaging Determination of the degree of stenosis in the internal carotid arteries is obtained using measureme nts of distal internal carotid diameter (directly or indirectly) as the denominator for stenosis freddy urement. The method utilized is similar to that utilized in the [place] Symptomatic Carotid E ndarterectomy Trial (NASCET) method. If the degree of stenosis is greater than 30%, the actual percen tage stenosis is given in the body of the report. Radiation Dose Information: CT Dose: CTDI volume is 31.05 mGy. Dose-length product is 569.77 mGy*cm Findings: Neck: The aortic arch and great vessels are within normal limits. The common carotid arteri es, carotid bifurcation, internal and external carotid arteries are within normal limits. Vertebral a rteries are within normal limits, with left dominant. No evidence of aneurysm, dissection, or stenosi s. The pharynx and upper airway appear normal with no evidence of stricture or focal lesion. No evidence of cervical lymphadenopathy. The thyroid, submandibular, and parotid glands appear normal. Osseous structures appear unremarkable. Biapical scarring. Vertebrobasilar Circulation: The basilar artery is unremarkable. Other: The visualized dural sinuses and intradural venous system are unremarkable. The skull base, c alvaria, orbits, and overlying soft tissues are intact. The paranasal sinuses, mastoid air cells, and middle ear cavities are clear and well aerated. Impression: 1. No evidence of stenosis, aneurysm, or dissection.
[2024-10-03 15:52] LABS: Triglycerides 65 mg/dL (< 150)
[2024-10-03 15:53] LABS: Blood Alcohol 3.2 mg/dL (<10)
[2024-10-03 15:55] LABS: Cholesterol 209 mg/dL (< 200); HDL Cholesterol 63 mg/dL (40-59); LDL Cholesterol 132 mg/dL (< 100)
--- NOTE | 2024-10-03 18:46 | DVHPNRES ---
Progress Note Date Seen: Oct 03, 2024 Resident Creating Document: ZUNILDA TRIPATHI RESIDENT Medical Necessity Reason Pt with a Central, PICC or Fol: No Subjective Review of Systems Ms. Han, a 59-year-old Nepali-speaking female with a history of anemia, gastrointestinal disorders (including PUD, gastritis, colitis), hypothyroidism, chronic back pain, likely osteoarthritis, Hernia Repair and Left oophorectomy presents with a two-week history of recurrent dizziness and syncopal episodes, typically triggered by standing, and accompanied by headache, lightheadedness, fatigue, shortness of breath, and bilateral ear ringing. Her most recent episode occurred the previous night in the bathroom, resulting in a fall and head injury. She denies nausea, vomiting, bleeding, fever, or recent illness. Due to concerns for underlying acute neurovascular conditions, she was referred to the ED by her PCP and has been admitted for further evaluation and monitoring. Admitted on telemetry floor, for continued dizziness and multiple syncopal episodes, with differential diagnoses including syncope (cardiac or neurovascular), structural heart disease, hypovolemia, arrhythmia, acute coronary syndrome, orthostatic hypotension, posterior column disease, TIA, cerebellar/inner ear disorders, pulmonary embolism, aortic dissection, seizure, and basilar stroke. PCP Dr. Leiva, Pain Specialist Dr. Fernandez. Extremely poor historian. Past medical history: anemia, gastrointestinal disorders (including PUD, gastritis, colitis), hypothyroidism, chronic back pain, likely osteoarthritis Past surgical history: Hernia repair and left oophorectomy Social history: Denies smoking, drinking, drug use. Lives with family. Patient seen and examined at bedside. CT angio head and neck and MRI brain ordered. Orthostatic vitals ordered. Soft diet started. Objective vital signs Vital Sign Date Time Temp Pulse Resp B/P (MAP) Pulse Ox O2 Delivery O2 Flow Rate FiO2 10/03/24 17:12 97.8 50 18 138/66 (90) 97 97.8 10/03/24 07:50 Room Air* 0 21 Total Intake and Output 10/02/24 10/02/24 10/03/24 15:00 23:00 07:00 Intake Total 220 ml Output Total 520 ml Balance -300 ml medications Current Medications Medications Dose Ordered Sig/Nancy Route Start Time Stop Time Status Last Admin Dose Admin Sodium Chloride 1,000 ml @ 120 mls/hr Q8H20M IV 10/02/24 23:30 10/03/24 16:00 120 MLS/HR Ondansetron HCl 4 mg Q4HP PRN IV 10/02/24 23:30 Docusate Sodium 100 mg BIDPRN PRN PO 10/02/24 23:30 Acetaminophen 650 mg Q6HP PRN PO 10/02/24 23:30 10/03/24 14:22 650 MG Morphine Sulfate 2 mg Q4HPRN PRN IV 10/02/24 23:30 Nitroglycerin 0.4 mg Q5MINP PRN SL 10/02/24 23:30 Morphine Sulfate 2 mg Q30M PRN IV 10/02/24 23:30 Levothyroxine Sodium 50 mcg DAILY@0630 IV 10/03/24 06:30 10/03/24 06:29 50 MCG Pantoprazole Sodium 40 mg DAILY@BREAKFAST IV 10/03/24 00:00 10/03/24 10:07 40 MG Examination General Appearance: Alert, Oriented X3, Cooperative, moderate distress HEENT: Atraumatic, PERRLA, EOMI, Mucous membr. moist/pink Respiratory: Clear to auscultation, Normal air movement, Other (on room air ) Cardiovascular: Regular rate, Normal S1, Normal S2, No murmurs, Other (NSR, HR low normal in 50s/min) Abdominal: Normal bowel sounds, Soft, No tenderness, No hepatospenomegaly, No masses Extremities: No clubbing, No cyanosis, No edema, Normal pulses, No tenderness/swelling Skin: No rashes, No breakdown, No significant lesion Psych/Mental Status: Mental status NL, Mood NL, Other laboratory and microbiology Laboratory Tests 10/03/24 08:08 Test 10/03/24 08:08 Range/Units Serum Glucose 85 74-106 mg/dL Labs and/or images reviewed: Labs reviewed by me, Image(s) reviewed by me Problem List/Assessment/Plan Problem List/Assessment/Plan Ruled out acute stroke Chronic small-vessel ischemia Head CT unremarkable for acute intracranial abnormality shows mild nonspecific white matter disease likely chronic small-vessel ischemia. MRI brain shows no acute CVA. Mild chronic ischemic changes. Recurrent syncope rule out cardiac causes Rule out arrhythmias versus structural heart disease Rule out orthostatic hypotension Rulef out ACS Carotid Doppler shows 50-69% stenosis of the left ICA. No hemodynamically significant stenosis in the right. CT angio shows No evidence of stenosis, aneurysm, or dissection. Echocardiogram shows grade 1 diastolic dysfunction, normal RV function, LA enlarged, no severe valve abnormalities NS 120 mL/hour ? Symptomatic Sinus bradycardia Patient on telemetry unit Avoid beta venus and calcium channel venus Unintentional weight loss -GI consulted-recommended outpatient workup Ruled out DVT Lower extremity Doppler unremarkable Hypothyroidism Continue levothyroxine 50 mcg daily Hypokalemia Supplemented Magnesium in a.m. Dyslipidemia Atorvastatin 40 mg HS daily History of peptic ulcer disease History of hiatal hernia -continue home medication Protonix 40 mg daily Chronic anemia, likely iron-deficiency -continue oral iron supplementation with 325 mg daily Chronic back pain -continue pain management History of hernia repair History of left oophorectomy -monitor Plan discussed with patient in which all questions have been answered Goals of care discussed with patient for more than 28 minutes, full code status Case discussed with Dr. Gomez Plan discussed with: Patient My Orders My Orders Orders - ZUNILDA TRIPATHI RESIDENT Procedure Category Date Status Time Soft Diet DIET 10/03/24 Transmitted Lunch Orthostatic Vital ORDERS 10/03/24 Transmitted Signs 10:35 Brain Head Wo Contrast MRI 10/03/24 Resulted 12:55 Ct Angio Neck Contrast CT 10/03/24 Resulted 12:55 Date of Service: Oct 03, 2024 Billing Provider: KENJI GOMEZ MD Common Visit Codes: [id number] INP/OBS CARE(HIGH) ZUNILDA TRIPATHI RESIDENT Oct 03, 2024 18:46 KENJI GOMEZ MD Oct 03, 2024 21:02
--- NOTE | 2024-10-03 21:12 | DVHINCON2 ---
Date of service: Oct 03, [address] Alvarenga Reason for Consultation Anemia and wt loss History of Present Illness Ms. Han, a 59-year-old Gambian-speaking female with a history of anemia, gastrointestinal disorders (including PUD, gastritis, colon polyps), hypothyroidism, chronic back pain, likely osteoarthritis, presents with a two- week history of recurrent dizziness and syncopal episodes, typically triggered by standing, and accompanied by headache, lightheadedness, fatigue, shortness of breath, and bilateral ear ringing. Her most recent episode occurred the previous night in the bathroom, resulting in a fall and head injury. She denies nausea, vomiting, bleeding, fever, or recent illness. Due to concerns for underlying acute neurovascular conditions, she was referred to the ED by her PCP and has been admitted for further evaluation and monitoring. GI was consulted because of mild anemia and history of epigastric pain. Patient denied any active GI bleeding. There was no nausea vomiting no hematemesis no bright red blood per rectum. Communication was done with family at bedside who were translating in Gambian. Patient had her last endoscopy in [place] within the last year or two which showed some gastritis. Her last colonoscopy was at the [facility] within the last year and she has had at least two done with removal of some polyps.Last EGD was done here in [address] Seth which showed a small hiatal hernia. Her last imaging on her abdomen was also over 10 years ago at our hospital Past Medical History Past Medical History anemia, gastrointestinal disorders (including PUD, gastritis, colitis), hypothyroidism, chronic back pain, likely osteoarthritis Past Surgical History Past Surgical History Hernia Repair and Left oophorectomy Family History: Colon cancer G8 FATHER, Onset:40's - 50 Family history: Hypertension G8 MOTHER G8 FATHER Allergies: Coded Allergies: Penicillins (Verified Allergy, Unknown, 01/20/16) Home Meds Reported Medications Ferrous Sulfate (Gnp Iron) 325 Mg Tab, 1 TAB PO 3XW for 90 Days, #36 10/03/24 Tizanidine Hydrochloride (Tizanidine Hcl) 2 Mg Tab, 1 TAB PO BID for 30 Days, #60 10/03/24 Levothyroxine Sodium (Levothyroxine Sodium) 50 Mcg Tab, 1 TAB PO DAILY for 90 Days, #90 10/03/24 Current Medications Current Medications Medications (Trade) Dose Ordered Sig/Nancy Route PRN Reason Start Time Stop Time Status Last Admin Sodium Chloride 1,000 ml @ 120 mls/hr Q8H20M IV 10/02/24 23:30 10/03/24 16:00 Ondansetron HCl (Zofran) 4 mg Q4HP PRN IV NAUSEA / VOMITING 10/02/24 23:30 Docusate Sodium (Colace Capsule) 100 mg BIDPRN PRN PO FOR CONSTIPATION 10/02/24 23:30 Acetaminophen (Tylenol Tablet) 650 mg Q6HP PRN PO PAIN SCALE 1-3 OR TEMP>100.4 10/02/24 23:30 10/03/24 20:27 Morphine Sulfate 2 mg Q4HPRN PRN IV SEVERE PAIN (7-10 PAIN SCALE) 10/02/24 23:30 Nitroglycerin (Ntrostat Sublingual) 0.4 mg Q5MINP PRN SL FOR CHEST PAIN 10/02/24 23:30 Morphine Sulfate 2 mg Q30M PRN IV FOR CHEST PAIN 10/02/24 23:30 Levothyroxine Sodium (Synthroid Injection) 50 mcg DAILY@0630 IV 10/03/24 06:30 10/03/24 06:29 Pantoprazole Sodium (Protonix) 40 mg DAILY@BREAKFAST IV 10/03/24 00:00 10/03/24 10:07 Vital Signs Vital Signs Date Time Temp Pulse Resp B/P (MAP) Pulse Ox O2 Delivery O2 Flow Rate FiO2 10/03/24 17:12 97.8 50 18 138/66 (90) 97 97.8 10/03/24 07:50 Room Air* 0 21 Physical Exam General Appearance: Alert, Oriented X3, Cooperative, no distress;mild pallor HEENT: Atraumatic, PERRLA, EOMI, Mucous membr. moist/pink Respiratory: Clear to auscultation, Normal air movement, Other (on room air ) Cardiovascular: Regular rate, Normal S1, Normal S2, No murmurs, Other (NSR, HR low normal in 50s/min) Abdominal: Normal bowel sounds, Soft, No tenderness, No hepatospenomegaly, No masses Extremities: No clubbing, No cyanosis, No edema, Normal pulses, No tenderness/swelling Skin: No rashes, No breakdown, No significant lesion Psych/Mental Status: Mental status NL, Mood NL, Other Labs/Diagnostic Data Labs Test 10/03/24 08:08 10/02/24 22:00 10/02/24 18:39 Range/Units White Blood Count 3.7 L 4.4-10.8 10^3/uL Red Blood Count 3.36 L 4.0-5.20 10^6/uL Hemoglobin 10.7 L 12.2-16.2 g/dL Hematocrit 32.2 L 36.0-46.0 % Mean Corpuscular Volume 95.8 80.0-100.0 fL Mean Corpuscular Hemoglobin 31.9 28.0-32.0 pg Mean Corpuscular Hemoglobin Concent 33.3 32.0-36.0 g/dL Red Cell Distribution Width 14.1 11.8-14.3 % Platelet Count 232 140-450 10^3/uL Mean Platelet Volume 7.2 6.9-10.8 fL Neutrophils (%) (Auto) 62.4 37.0-80.0 % Lymphocytes (%) (Auto) 28.5 10.0-50.0 % Monocytes (%) (Auto) 7.3 0.0-12.0 % Eosinophils (%) (Auto) 1.4 0.0-7.0 % Basophils (%) (Auto) 0.4 0.0-2.0 % Neutrophils # (Auto) 2.3 1.6-8.6 10 ^3/uL Lymphocytes # (Auto) 1.1 0.4-5.4 10 ^3/uL Monocytes # (Auto) 0.3 0-1.3 10 ^3/uL Eosinophils # (Auto) 0.1 0-0.8 10 ^3/uL Basophils # (Auto) 0 0-0.2 10 ^3/uL Nucleated Red Blood Cells 0.0 % Sodium Level 143 136-145 mmol/L Potassium Level 3.3 L 3.5-5.1 mmol/L Chloride Level 110 H 98-107 mmol/L Carbon Dioxide Level 24 20-31 mmol/L Anion Gap 9 5-15 Blood Urea Nitrogen 16 9-23 mg/dL Creatinine 0.59 # 0.550-1.02 mg/dL Glomerular Filtration Rate Calc 103 >90 mL/min BUN/Creatinine Ratio 27.1 H 10.0-20.0 Serum Glucose 85 74-106 mg/dL Hemoglobin A1c < 3.8 <5.7 % A1C Calcium Level 8.7 8.7-10.4 mg/dL Ferritin 43.3 10-291 ng/mL Total Bilirubin 0.5 0.2-1.0 mg/dL Aspartate Amino Transferase (AST) 18 0-34 U/L Alanine Aminotransferase (ALT) 13 7-40 U/L Alkaline Phosphatase 108 46-116 U/L Total Protein 6.4 5.7-8.2 g/dL Albumin 4.1 3.2-4.8 g/dL Triglycerides Level 65 < 150 mg/dL Cholesterol Level 209 H < 200 mg/dL LDL Cholesterol 132 H < 100 mg/dL HDL Cholesterol 63 H 40-59 mg/dL Vitamin B12 Level 382 211-911 pg/mL Cortisol AM Sample 14.87 5.27-22.45 ug/dL Plasma/Serum Blood Alcohol 3.2 <10 mg/dL Urine Color Dark-yellow Yellow Urine Clarity Clear Clear Urine pH 5.5 5.0-9.0 Urine Specific [place] 1.029 1.001-1.035 Urine Protein Trace H Negative Urine Ketones Trace Negative Urine Blood Negative Negative /uL Urine Nitrite Negative Negative Urine Bilirubin Negative Negative Urine Urobilinogen Normal Negative mg/dL Urine Leukocyte Esterase Negative Negative /uL Urine RBC 17 0 - 4 /hpf Urine Microscopic WBC 1 0-5 /HPF Urine Squamous Epithelial Cells Few <5 /hpf Urine Bacteria None seen None Seen /hpf Urine Mucus Few None Seen Urine Yeast (Budding) Moderate None Seen /hpf Urine Glucose Normal Normal mg/dL Urine Opiates Screen Neg NEGATIVE Urine Fentanyl Screen Neg NEGATIVE Urine Barbiturates Screen Neg NEGATIVE Urine Phencyclidine Screen Neg NEGATIVE Urine Amphetamines Screen Neg NEGATIVE Urine Benzodiazepines Screen Neg NEGATIVE Urine Cocaine Screen Neg NEGATIVE Urine Cannabinoids Screen Neg NEGATIVE Iron Level 84 50-170 ug/dL Total Iron Binding Capacity 301 250-425 ug/dL Percent Iron Saturation 27.9 15-50 % Troponin I High Sensitivity < 3 L </=34 ng/L B-Type Natriuretic Peptide 24.45 0-100 pg/mL Thyroid Stimulating Hormone (TSH) 1.40 0.55-4.78 uIU/mL Problems(with codes): (1) Syncope (2) Pneumonia (3) Anemia Plan/Recommendation Plan At this time I will maintain this patient on Protonix 40 mg IV Patient needs medical stabilization and further workup from cardiology and neurological point of view Consider carotid Doppler and monitor for arrhythmia I will order a CT scan of the abdomen pelvis Defer endoscopic workup at this time as she has had recent test done [facility] Monitor labs, stool for occult blood ;anemia work up I will follow up patient with you Plan discussed with: Patient, Spouse, Other (Nurse) KOBI MONTANA MD Oct 03, 2024 21:12
[2024-10-03] MEDS: POTASSIUM EFFERVESENT TAB 25 MEQ PO ONE (21:43)
[2024-10-03] MEDS: MELATONIN 5 MG TAB PO ONE (21:44)
[2024-10-04] VITALS (8 sets, daily range): BP systolic 114–139; BP diastolic 50–83; PULSE 46–66; RESP 14–18; TEMP 97.4–98.1; O2SAT 95–100
[2024-10-04 07:14] LABS: Basophils # (auto) 0 10 ^3/uL (0-0.2); Basophils % (auto) 0.1 % (0.0-2.0); Eosinophils # (auto) 0.1 10 ^3/uL (0-0.8); Eosinophils % (auto) 1.4 % (0.0-7.0); Hematocrit 29.7 % (36.0-46.0); Hemoglobin 10.1 g/dL (12.2-16.2); Lymphocytes # (auto) 1.3 10 ^3/uL (0.4-5.4); Mean Corpuscular Hemoglobin 32.1 pg (28.0-32.0); Mean Corpuscular Hgb Conc. 34.1 g/dL (32.0-36.0); Mean Corpuscular Volume 94.2 fL (80.0-100.0); Monocytes # (auto) 0.3 10 ^3/uL (0-1.3); Monocytes % (auto) 6.9 % (0.0-12.0); Neutrophils # (auto) 2.6 10 ^3/uL (1.6-8.6); Neutrophils % (auto) 61.6 % (37.0-80.0); Nucleated Red Blood Cells % 0.2 %; Platelet Count (auto) 221 10^3/uL (140-450); Red Blood Cells 3.16 10^6/uL (4.0-5.20); Red Cell Distribution Width 13.8 % (11.8-14.3); White Blood Cell 4.3 10^3/uL (4.4-10.8)
[2024-10-04 07:16] LABS: Anion Gap 9 (5-15); Carbon Dioxide 24 mmol/L (20-31); Potassium 3.5 mmol/L (3.5-5.1); Sodium 142 mmol/L (136-145)
[2024-10-04 07:22] LABS: BUN/Creatinine Ratio 17.1 (10.0-20.0); Blood Urea Nitrogen 12 mg/dL (9-23); Glucose 89 mg/dL (74-106)
[2024-10-04 07:23] LABS: Magnesium 1.9 mg/dL (1.6-2.6)
[2024-10-04 07:26] LABS: Calcium 8.5 mg/dL (8.7-10.4); Chloride 109 mmol/L (98-107)
--- NOTE | 2024-10-04 10:18 | DVH ---
CT CT AB PEL WO CON-NO ORAL OR IV INDICATION: ANEMIA EXAM DATE: 10/04/2024 09:21 AM COMPARISON: None RADIATION DOSE: CTDIvol: 5.07 mGy, DLP: 247.05 mGy*cm PROCEDURE: Helical CT images were obtained of the abdomen and pelvis without IV contrast Sagittal and coronal reconstructions are provided. ORAL CONTRAST: None. ADDITIONAL IMAGES / REFORMATS: None All C T scans at this medical facility are performed using dose modulation techniques as appropriate to a p erformed exam including the following: Automated exposure control was utilized; adjustment of the MA and/or KV according to patient size; and use of iterative reconstruction technique. FINDINGS: LUNG BASE: Normal. LIVER: Normal. GALLBLADDER AND BILIARY TREE: Sludge. No intra- or extrahepatic biliary ductal dilation. PANCREAS: Normal. SPLEEN: Normal. BOWEL: Moderate colonic diverticulosis. Appendix is normal. ADRENALS: Normal. KIDNEYS AND URETER: Normal. BLADDER: Normal. REPRODUCTIVE ORGANS: Normal. LYMPH NODES:No lymphadenopathy. PERITONEUM: Trace pelvic fluid. VESSELS: Scattered atherosclerotic calcifications are noted. RETROPERITONEUM: Normal. ABDOMINAL WALL: Normal. BONES: Scattered osseous degenerative changes are noted. IMPRESSION: No acute intraabdominal abnormality.
--- NOTE | 2024-10-04 12:25 | DVHINCON2 ---
Date Seen: Oct 04, 2024 Referring Physician MD Jey resident Reason for Consultation Syncope and bradycardia History of Present Illness This is a pleasant [place]-speaking 59 year old female patient who presents to the emergency room with chief complaint of syncopal episode. The patient reports on the day prior to emergency room arrival she was in the restroom and after having a bowel movement she got up, instantly felt dizzy, and passed out. She does report loss of consciousness as well as hitting her head. She reports that she is unsure how long she was unconscious. She states she then got up and sat back down on the toilet and proceeded to have another syncopal episode. Of note, she does mention that she had been experiencing constipation since starting iron pills earlier in the week. She came to the emergency room for further evaluation the following day. Initial twelve lead electrocardiogram reveals sinus bradycardia without any significant ST segment changes, pauses, or atrioventricular blocks. Initial troponin level was negative. The patient denies any cardiac symptoms. Significant past medical history includes dyslipidemia, gastritis, colitis, constipation, anemia, and thyroid disease. Past Medical History Past medical history reviewed. No other significant than mentioned above. Past Surgical History Hernia repair Left oophorectomy Family History: Colon cancer G8 FATHER, Onset:40's - 50 Family history: Hypertension G8 MOTHER G8 FATHER Family History Family history reviewed. Social History Denies the use of tobacco, alcohol or illicit drugs. Allergies: Coded Allergies: Penicillins (Verified Allergy, Unknown, 01/20/16) Home Meds Reported Medications Ferrous Sulfate (Gnp Iron) 325 Mg Tab, 1 TAB PO 3XW for 90 Days, #36 10/03/24 Tizanidine Hydrochloride (Tizanidine Hcl) 2 Mg Tab, 1 TAB PO BID for 30 Days, #60 10/03/24 Levothyroxine Sodium (Levothyroxine Sodium) 50 Mcg Tab, 1 TAB PO DAILY for 90 Days, #90 10/03/24 Home Meds Home medications reviewed. Review of Systems Constitutional: No symptom reported Ears, Nose, & Throat: No symptom reported Eyes: No symptom reported Neurological: Syncope Pulmonary/Respiratory: No symptoms reported Cardiovascular: No symptom reported Gastrointestinal: No symptom reported Genitourinary: No symptom reported Musculoskeletal: No symptom reported Skin: No symptom reported Psychiatric: No symptom reported Endocrine: No symptom reported Hematologic/Lymphatic: No symptom reported Vital Signs Vital Signs Date Time Temp Pulse Resp B/P (MAP) Pulse Ox O2 Delivery O2 Flow Rate FiO2 10/04/24 09:16 97.8 60 14 123/50 (74) 97 97.8 10/04/24 08:00 Room Air* 0 21 Physical Exam General Appearance: Cooperative. Well-developed. Well-nourished. No acute distress. Pulmonary/Respiratory: Clear, bilateral breaths sounds. Cardiovascular/Chest: Regular rate and rhythm. Peripheral Pulses: 2+ Radial (R). 2+ Radial (L). 2+ Pedal (R). 2+ Pedal (L) Abdominal Exam: Normal bowel sounds. Ankle Exam: Negative ankle edema Lower extremities: Negative lower extremity edema Neuro/Mental Status: A/OX4, coherent. Thoughts/Psych: Normal thought pattern. Appropriate mood and affect. Good judgment and insight. Appearance: No acute distress. Skin Exam: Normal inspection. Normal color. Warm and dry. Labs/Diagnostic Data Labs Test 10/04/24 05:57 10/03/24 08:08 10/02/24 22:00 10/02/24 18:39 Range/Units White Blood Count 4.3 L 4.4-10.8 10^3/uL Red Blood Count 3.16 L 4.0-5.20 10^6/uL Hemoglobin 10.1 L 12.2-16.2 g/dL Hematocrit 29.7 L 36.0-46.0 % Mean Corpuscular Volume 94.2 80.0-100.0 fL Mean Corpuscular Hemoglobin 32.1 H 28.0-32.0 pg Mean Corpuscular Hemoglobin Concent 34.1 32.0-36.0 g/dL Red Cell Distribution Width 13.8 11.8-14.3 % Platelet Count 221 140-450 10^3/uL Mean Platelet Volume 7.6 6.9-10.8 fL Neutrophils (%) (Auto) 61.6 37.0-80.0 % Lymphocytes (%) (Auto) 30.0 10.0-50.0 % Monocytes (%) (Auto) 6.9 0.0-12.0 % Eosinophils (%) (Auto) 1.4 0.0-7.0 % Basophils (%) (Auto) 0.1 0.0-2.0 % Neutrophils # (Auto) 2.6 1.6-8.6 10 ^3/uL Lymphocytes # (Auto) 1.3 0.4-5.4 10 ^3/uL Monocytes # (Auto) 0.3 0-1.3 10 ^3/uL Eosinophils # (Auto) 0.1 0-0.8 10 ^3/uL Basophils # (Auto) 0 0-0.2 10 ^3/uL Nucleated Red Blood Cells 0.2 % Sodium Level 142 136-145 mmol/L Potassium Level 3.5 3.5-5.1 mmol/L Chloride Level 109 H 98-107 mmol/L Carbon Dioxide Level 24 20-31 mmol/L Anion Gap 9 5-15 Blood Urea Nitrogen 12 9-23 mg/dL Creatinine 0.70 0.550-1.02 mg/dL Glomerular Filtration Rate Calc 99 >90 mL/min BUN/Creatinine Ratio 17.1 10.0-20.0 Serum Glucose 89 74-106 mg/dL Calcium Level 8.5 L 8.7-10.4 mg/dL Magnesium Level 1.9 1.6-2.6 mg/dL Folic Acid 8.52 >5.38 ng/mL Hemoglobin A1c < 3.8 <5.7 % A1C Ferritin 43.3 10-291 ng/mL Total Bilirubin 0.5 0.2-1.0 mg/dL Aspartate Amino Transferase (AST) 18 0-34 U/L Alanine Aminotransferase (ALT) 13 7-40 U/L Alkaline Phosphatase 108 46-116 U/L Total Protein 6.4 5.7-8.2 g/dL Albumin 4.1 3.2-4.8 g/dL Triglycerides Level 65 < 150 mg/dL Cholesterol Level 209 H < 200 mg/dL LDL Cholesterol 132 H < 100 mg/dL HDL Cholesterol 63 H 40-59 mg/dL Vitamin B12 Level 382 211-911 pg/mL Cortisol AM Sample 14.87 5.27-22.45 ug/dL Plasma/Serum Blood Alcohol 3.2 <10 mg/dL Urine Color Dark-yellow Yellow Urine Clarity Clear Clear Urine pH 5.5 5.0-9.0 Urine Specific [place] 1.029 1.001-1.035 Urine Protein Trace H Negative Urine Ketones Trace Negative Urine Blood Negative Negative /uL Urine Nitrite Negative Negative Urine Bilirubin Negative Negative Urine Urobilinogen Normal Negative mg/dL Urine Leukocyte Esterase Negative Negative /uL Urine RBC 17 0 - 4 /hpf Urine Microscopic WBC 1 0-5 /HPF Urine Squamous Epithelial Cells Few <5 /hpf Urine Bacteria None seen None Seen /hpf Urine Mucus Few None Seen Urine Yeast (Budding) Moderate None Seen /hpf Urine Glucose Normal Normal mg/dL Urine Opiates Screen Neg NEGATIVE Urine Fentanyl Screen Neg NEGATIVE Urine Barbiturates Screen Neg NEGATIVE Urine Phencyclidine Screen Neg NEGATIVE Urine Amphetamines Screen Neg NEGATIVE Urine Benzodiazepines Screen Neg NEGATIVE Urine Cocaine Screen Neg NEGATIVE Urine Cannabinoids Screen Neg NEGATIVE Iron Level 84 50-170 ug/dL Total Iron Binding Capacity 301 250-425 ug/dL Percent Iron Saturation 27.9 15-50 % Troponin I High Sensitivity < 3 L </=34 ng/L B-Type Natriuretic Peptide 24.45 0-100 pg/mL Thyroid Stimulating Hormone (TSH) 1.40 0.55-4.78 uIU/mL Assessment Syncope, rule out cardiac etiology Sinus bradycardia ?Vasovagal episode Dyslipidemia Acute on chronic anemia Hypokalemia Plan/Recommendation We will proceed with the following plan/recommendations (Dr. Marx): A transthoracic echocardiogram reveals EF 66% with no valve abnormalities. The patient underwent a bilateral carotid Doppler study which revealed 50-69% stenosis in the left internal carotid artery. This was followed by a neck CTA which showed no evidence of stenosis, aneurysm, or dissection. After reviewing color television console monitor, the patient does have episodes of sinus bradycardia with PACs. No pauses or atrioventricular blocks noted. Continue with orthostatic vital signs. We will continue to monitor for symptomatic bradycardia. At this point, no indication for permanent pacemaker implantation. Further recommendations per clinical course and progression. Thank you for allowing us to care for this patient. Please call with any questions or concerns. Critical care time spent: 42 minutes This medical document was created using an electronic medical record system with voice recognition software and computerized dictation system. Although this document has been carefully reviewed, there might still be some phonetic and typographical errors. Occasional wrong-word or ``sound-alike substitutions may have occurred due to the inherent limitations of voice recognition software. These areas are purely typographical due to imperfections of the software programs and do not reflect any compromise in the patient's medical care. Please read the chart carefully and recognize, using context, where these substitutions have occurred. Plan discussed with: Patient NYHA Physical activity limitations: NA Date of Service: Oct 04, 2024 Billing Provider: ISHMAEL WATERMAN Cardiology Common Codes: 80484-[id number] INP/OBS CARE (High) Cardiology Consultation Codes: [id number] CONSULT <45MIN ISHMAEL WATERMAN Oct 04, 2024 12:25
--- NOTE | 2024-10-04 16:24 | DVHPNRES ---
Progress Note Date Seen: Oct 04, 2024 Resident Creating Document: ZUNILDA TRIPATHI RESIDENT Medical Necessity Reason Pt with a Central, PICC or Fol: No Subjective Review of Systems Patient seen and examined at bedside, dizziness improved, patient was walking with PT. Orthostatic hypotension was positive, patient heart rate was at lower side, cardiology consult Objective vital signs Vital Sign Date Time Temp Pulse Resp B/P (MAP) Pulse Ox O2 Delivery O2 Flow Rate FiO2 10/04/24 12:30 97.6 57 16 123/57 (79) 98 97.6 126/60 (82) 131/67 (88) 10/04/24 08:00 Room Air* 0 21 Total Intake and Output 10/03/24 10/03/24 10/04/24 15:00 23:00 07:00 Intake Total 1800 ml 500 ml Output Total 2 ml Balance 1798 ml 500 ml medications Current Medications Medications Dose Ordered Sig/Nancy Route Start Time Stop Time Status Last Admin Dose Admin Sodium Chloride 1,000 ml @ 120 mls/hr Q8H20M IV 10/02/24 23:30 10/04/24 15:59 120 MLS/HR Ondansetron HCl 4 mg Q4HP PRN IV 10/02/24 23:30 Docusate Sodium 100 mg BIDPRN PRN PO 10/02/24 23:30 Acetaminophen 650 mg Q6HP PRN PO 10/02/24 23:30 10/04/24 15:58 650 MG Morphine Sulfate 2 mg Q4HPRN PRN IV 10/02/24 23:30 Nitroglycerin 0.4 mg Q5MINP PRN SL 10/02/24 23:30 Morphine Sulfate 2 mg Q30M PRN IV 10/02/24 23:30 Levothyroxine Sodium 50 mcg DAILY@0630 IV 10/03/24 06:30 10/04/24 05:39 50 MCG Pantoprazole Sodium 40 mg DAILY@BREAKFAST IV 10/03/24 00:00 10/04/24 09:11 40 MG Examination General Appearance: Alert, Oriented X3, Cooperative, moderate distress HEENT: Atraumatic, PERRLA, EOMI, Mucous membr. moist/pink Respiratory: Clear to auscultation, Normal air movement, Other (on room air ) Cardiovascular: Regular rate, Normal S1, Normal S2, No murmurs, Other (NSR, HR low normal in 50s/min) Abdominal: Normal bowel sounds, Soft, No tenderness, No hepatospenomegaly, No masses Extremities: No clubbing, No cyanosis, No edema, Normal pulses, No tenderness/swelling Skin: No rashes, No breakdown, No significant lesion Psych/Mental Status: Mental status NL, Mood NL, Other laboratory and microbiology Laboratory Tests 10/04/24 05:57 Test 10/04/24 05:57 Range/Units Serum Glucose 89 74-106 mg/dL Problem List/Assessment/Plan Problem List/Assessment/Plan Ruled out acute stroke Chronic small-vessel ischemia Head CT unremarkable for acute intracranial abnormality shows mild nonspecific white matter disease likely chronic small-vessel ischemia. MRI brain shows no acute CVA. Mild chronic ischemic changes. Recurrent syncope rule out cardiac causes Rule out arrhythmias versus structural heart disease Rule out orthostatic hypotension Rulef out ACS Carotid Doppler shows 50-69% stenosis of the left ICA. No hemodynamically significant stenosis in the right. CT angio shows No evidence of stenosis, aneurysm, or dissection. Echocardiogram shows grade 1 diastolic dysfunction, normal RV function, LA enlarged, no severe valve abnormalities NS 120 mL/hour ? Symptomatic Sinus bradycardia Patient on telemetry unit Avoid beta venus and calcium channel venus Unintentional weight loss -GI consulted-recommended outpatient workup # chronic stroke, Chronic small-vessel ischemia # Ruled out acute stroke Head CT unremarkable for acute intracranial abnormality shows mild nonspecific white matter disease likely chronic small-vessel ischemia. MRI brain shows no acute CVA. Mild chronic ischemic changes. # Recurrent syncope rule out cardiac causes # Rule out arrhythmias versus structural heart disease # Rule out orthostatic hypotension # Rulef out ACS - cardiology consult appreciated -Carotid Doppler shows 50-69% stenosis of the left ICA. No hemodynamically significant stenosis in the right. -CT angio shows No evidence of stenosis, aneurysm, or dissection. -Echocardiogram shows grade 1 diastolic dysfunction, normal RV function, LA enlarged, no severe valve abnormalities, EF 66% - NS 120 mL/hour # ? Symptomatic Sinus bradycardia - cardiology consult appreciated - Patient on telemetry unit Avoid beta venus and calcium channel venus # Unintentional weight loss -GI consulted-recommended outpatient workup # Ruled out DVT - Lower extremity Doppler unremarkable # Hypothyroidism - Continue levothyroxine 50 mcg daily # Hypokalemia -replenished # Dyslipidemia -Atorvastatin 40 mg HS daily # History of peptic ulcer disease # History of hiatal hernia -GI consult appreciated -continue home medication Protonix 40 mg daily # Chronic anemia, likely iron-deficiency -continue oral iron supplementation with 325 mg daily -GI consult appreciated # Chronic back pain -continue pain management # History of hernia repair # History of left oophorectomy -monitor Goals of care discussed with patient for 18 minutes, full code Case discussed with Dr. Gomez Ruled out DVT Lower extremity Doppler unremarkable Hypothyroidism Continue levothyroxine 50 mcg daily Hypokalemia Supplemented Magnesium in a.m. Dyslipidemia Atorvastatin 40 mg HS daily History of peptic ulcer disease History of hiatal hernia -continue home medication Protonix 40 mg daily Chronic anemia, likely iron-deficiency -continue oral iron supplementation with 325 mg daily Chronic back pain -continue pain management History of hernia repair History of left oophorectomy -monitor Plan discussed with patient in which all questions have been answered Goals of care discussed with patient for more than 28 minutes, full code status Case discussed with Dr. Gomez Plan discussed with: Patient My Orders My Orders Orders - ZUNILDA TRIPATHI RESIDENT Procedure Category Date Status Time * Cardiology Consult CONS 10/04/24 Transmitted 11:11 Soft Diet DIET 10/04/24 Transmitted Lunch Date of Service: Oct 04, 2024 Billing Provider: KNEJI GOMEZ MD Common Visit Codes: [id number] INP/OBS CARE(HIGH) ZUNILDA TRIPATHI RESIDENT Oct 04, 2024 16:24 KENJI GOMEZ MD Oct 05, 2024 22:19
--- NOTE | 2024-10-04 16:58 | DVHPN2 ---
Progress Note - Dictate Date Seen: Oct 04, 2024 Medical Necessity Reason Pt with a Central, PICC or Fol: No Subjective No new complaints Patient awake alert in no acute distress Minimal epigastric discomfort Patient is tolerating a regular diet She denies any GI bleeding vital signs Vital Sign Date Time Temp Pulse Resp B/P (MAP) Pulse Ox O2 Delivery O2 Flow Rate FiO2 10/04/24 12:30 97.6 57 16 123/57 (79) 98 97.6 126/60 (82) 131/67 (88) 10/04/24 08:00 Room Air* 0 21 Total Intake and Output 10/03/24 10/03/24 10/04/24 15:00 23:00 07:00 Intake Total 1800 ml 500 ml Output Total 2 ml Balance 1798 ml 500 ml medications Current Medications Medications Dose Ordered Sig/Nancy Route Start Time Stop Time Status Last Admin Dose Admin Sodium Chloride 1,000 ml @ 120 mls/hr Q8H20M IV 10/02/24 23:30 10/04/24 15:59 120 MLS/HR Ondansetron HCl 4 mg Q4HP PRN IV 10/02/24 23:30 Docusate Sodium 100 mg BIDPRN PRN PO 10/02/24 23:30 Acetaminophen 650 mg Q6HP PRN PO 10/02/24 23:30 10/04/24 15:58 650 MG Morphine Sulfate 2 mg Q4HPRN PRN IV 10/02/24 23:30 Nitroglycerin 0.4 mg Q5MINP PRN SL 10/02/24 23:30 Morphine Sulfate 2 mg Q30M PRN IV 10/02/24 23:30 Levothyroxine Sodium 50 mcg DAILY@0630 IV 10/03/24 06:30 10/04/24 05:39 50 MCG Pantoprazole Sodium 40 mg DAILY@BREAKFAST IV 10/03/24 00:00 10/04/24 09:11 40 MG objective General Appearance: Alert, Oriented X3, Cooperative, no distress; HEENT: Atraumatic, PERRLA, EOMI, Mucous membr. moist/pink Respiratory: Clear to auscultation, Normal air movement, Other (on room air ) Cardiovascular: Regular rate, Normal S1, Normal S2, No murmurs, Other (NSR, HR low normal in 50s/min) Abdominal: Normal bowel sounds, Soft, No tenderness, No hepatospenomegaly, No masses Extremities: No clubbing, No cyanosis, No edema, Normal pulses, No tenderness/swelling Skin: No rashes, No breakdown, No significant lesion Psych/Mental Status: Mental status NL, Mood NL, Other laboratory and microbiology Laboratory Tests 10/04/24 05:57 Test 10/04/24 05:57 Range/Units Serum Glucose 89 74-106 mg/dL Problems(with codes): (1) Anemia (2) Syncope (3) Shortness of breath (4) Bradycardia Prognosis Plan Neurology and cardiac workup are ongoing Cardiac recommendations noted A transthoracic echocardiogram reveals EF 66% with no valve abnormalities. The patient underwent a bilateral carotid Doppler study which revealed 50-69% stenosis in the left internal carotid artery. This was followed by a neck CTA which showed no evidence of stenosis, aneurysm, or dissection. 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 No pauses or atrioventricular blocks noted. If the patient's bradycardia is symptomatic then there should be consideration for possible pacemaker placement if required possible Holter placement Discussed with Dr. Feliciano who is also going to evaluate her patient from a neurology point of view Patient has had recent GI workup which has essentially been negative Anemia workup negative with normal vitamin B12 iron panel folate levels and ferritin Stool for occult blood is pending, continue IV Protonix 40 mg daily and diet as tolerated I will follow this patient conservatively for now Plan discussed with: Patient, Other (Dr Feliciano) KOBI MONTANA MD Oct 04, 2024 16:58
--- NOTE | 2024-10-04 18:03 | DVHINCON2 ---
Date of service: Oct 04, [address] Alvarenga Reason for Consultation Recurrent presyncope with headache, workup in progress History of Present Illness Ms. Han is a 59 years old right-handed female with a history of hypothyroidism, anemia, peptic ulcer disease, gastritis, colitis, she came to the [facility] on 10/02/2024 with a chief company of syncopal episodes. At this time, she is alert and fully oriented, she provided the following history. Please advised the history I obtained is not the same as ER documentation She passed out twice on 10/08/2024. The 1st one happened when she was standing at home. It started with dizziness/lightheadedness, vision blacked out, and she fell down to the floor for about 2 minutes without complete loss of consciousness, she was able to hear but not able to respond to her family. There was no associated chest pain, headache, nausea, hot feeling. Soon after, she got up and sit on the toilet bowl, without any warning symptoms, pass out completely for about 25 minutes but all the time she was sitting upright without falling down. Two days in the last one week time, she had frequent dizziness/lightheadedness/unsteadiness when she was walking around without falling or loss of consciousness She has chronic poor appetite, she does not drink or eat adequately, she has seen her doctors, and she was said to have anemia, elevated glucose, and thyroid problems UDS, 10/02/2024: Negative Plasma alcohol, 10/03/24: 3.2 Urinalysis, 10/02/2024: WBC: 1, urine leukocyte esterase: Negative WBC/HB/PLT/MCV, 10/04/2024: 4.3/10.1/221/94.2 CMP, 10/03/2024: Unremarkable HGB A1c, 10/03/24: 3.8 TG/HDL/LDL/HDL, 10/03/2024: 65/209/132/63 Vitamin B12, 10/03/24: 382 Folic acid, 10/04/2024: 8.52 TSH, 10/02/34: 1.4 CTA neck, 10/03/2024: No evidence of stenosis, aneurysm, or dissection. MRI head, 10/03/2024: 1. No acute cerebrovascular ischemia. 2. Mild chronic microvascular ischemic changes. Past Medical History Hypothyroidism, anemia, peptic ulcer disease, gastritis, colitis, Past Surgical History Oophorectomy, hernia repair Family History: Colon cancer G8 FATHER, Onset:40's - 50 Family history: Hypertension G8 MOTHER G8 FATHER Family History Hypertension, colon cancer Social History She has no history of tobacco smoking, alcohol or drug abuse Allergies: Coded Allergies: Penicillins (Verified Allergy, Unknown, 01/20/16) Home Meds Reported Medications Ferrous Sulfate (Gnp Iron) 325 Mg Tab, 1 TAB PO 3XW for 90 Days, #36 10/03/24 Tizanidine Hydrochloride (Tizanidine Hcl) 2 Mg Tab, 1 TAB PO BID for 30 Days, #60 10/03/24 Levothyroxine Sodium (Levothyroxine Sodium) 50 Mcg Tab, 1 TAB PO DAILY for 90 Days, #90 10/03/24 Review of Systems As above, the other systems are negative Vital Signs Vital Signs Date Time Temp Pulse Resp B/P (MAP) Pulse Ox O2 Delivery O2 Flow Rate FiO2 10/04/24 17:13 97.9 62 18 132/60 (84) 99 97.9 10/04/24 08:00 Room Air* 0 21 Physical Exam GENERAL EXAM: General: the patient is well developed and nourished. No acute distress. HEENT: Normocephalic, neck is supple, no carotid bruits. No mass RESPIRATORY: Normal respiratory effort with symmetrical lung expansion. Lungs clear to auscultation. CARDIOVASCULAR: Regular rate and rhythm with no murmurs. S1, S2. ABDOMEN: Soft, nontender, normal bowel sound NEUROLOGICAL: MENTAL STATUS: Awake and alert. Oriented to person, place, time and general circumstances. Poor historian SPEECH, LANGUAGE, HIGHER CORTICAL FUNCTION: no aphasia or dysathria. CRANIAL NERVES: #2: Intact visual collier to confrontation. The optic discs were sharp #3,4,6: Pupils are equal, round and reactive. EOMs full and conjugate. Mild bilateral gaze evoked nystagmus. #5: Facial sensation intact in all three divisions bilaterally. Mandibular strength intact. #7: Facial muscles symmetrical and strength intact. #8: Hearing grossly normal to voice. #9,10: Uvula and soft palate rise in the midline. Swallow and voice are normal. #11: Trapezius and sternomastoid strength intact bilaterally. #12: Tongue midline. No fasciculations or atrophy. SENSATION: Sensation to touch and pinprick is normal. MOTOR: Normal tone in the upper and lower extremity. Normal muscle bulk. No fasciculations. No abnormal movements or posturing. Muscle strength of the major groups in the upper extremities is 5/5. Muscle strength of the major groups in the lower extremities is 5/5. REFLEXES: Deep tendon reflexes are symmetrical. No pathological reflexes. CEREBELLAR/COORDINATION: Finger to nose is normal bilaterally. GAIT/STATION: deferred. Labs/Diagnostic Data Labs Test 10/04/24 05:57 10/03/24 08:08 10/02/24 22:00 10/02/24 18:39 Range/Units White Blood Count 4.3 L 4.4-10.8 10^3/uL Red Blood Count 3.16 L 4.0-5.20 10^6/uL Hemoglobin 10.1 L 12.2-16.2 g/dL Hematocrit 29.7 L 36.0-46.0 % Mean Corpuscular Volume 94.2 80.0-100.0 fL Mean Corpuscular Hemoglobin 32.1 H 28.0-32.0 pg Mean Corpuscular Hemoglobin Concent 34.1 32.0-36.0 g/dL Red Cell Distribution Width 13.8 11.8-14.3 % Platelet Count 221 140-450 10^3/uL Mean Platelet Volume 7.6 6.9-10.8 fL Neutrophils (%) (Auto) 61.6 37.0-80.0 % Lymphocytes (%) (Auto) 30.0 10.0-50.0 % Monocytes (%) (Auto) 6.9 0.0-12.0 % Eosinophils (%) (Auto) 1.4 0.0-7.0 % Basophils (%) (Auto) 0.1 0.0-2.0 % Neutrophils # (Auto) 2.6 1.6-8.6 10 ^3/uL Lymphocytes # (Auto) 1.3 0.4-5.4 10 ^3/uL Monocytes # (Auto) 0.3 0-1.3 10 ^3/uL Eosinophils # (Auto) 0.1 0-0.8 10 ^3/uL Basophils # (Auto) 0 0-0.2 10 ^3/uL Nucleated Red Blood Cells 0.2 % Sodium Level 142 136-145 mmol/L Potassium Level 3.5 3.5-5.1 mmol/L Chloride Level 109 H 98-107 mmol/L Carbon Dioxide Level 24 20-31 mmol/L Anion Gap 9 5-15 Blood Urea Nitrogen 12 9-23 mg/dL Creatinine 0.70 0.550-1.02 mg/dL Glomerular Filtration Rate Calc 99 >90 mL/min BUN/Creatinine Ratio 17.1 10.0-20.0 Serum Glucose 89 74-106 mg/dL Calcium Level 8.5 L 8.7-10.4 mg/dL Magnesium Level 1.9 1.6-2.6 mg/dL Folic Acid 8.52 >5.38 ng/mL Hemoglobin A1c < 3.8 <5.7 % A1C Ferritin 43.3 10-291 ng/mL Total Bilirubin 0.5 0.2-1.0 mg/dL Aspartate Amino Transferase (AST) 18 0-34 U/L Alanine Aminotransferase (ALT) 13 7-40 U/L Alkaline Phosphatase 108 46-116 U/L Total Protein 6.4 5.7-8.2 g/dL Albumin 4.1 3.2-4.8 g/dL Triglycerides Level 65 < 150 mg/dL Cholesterol Level 209 H < 200 mg/dL LDL Cholesterol 132 H < 100 mg/dL HDL Cholesterol 63 H 40-59 mg/dL Vitamin B12 Level 382 211-911 pg/mL Cortisol AM Sample 14.87 5.27-22.45 ug/dL Plasma/Serum Blood Alcohol 3.2 <10 mg/dL Urine Color Dark-yellow Yellow Urine Clarity Clear Clear Urine pH 5.5 5.0-9.0 Urine Specific Laie 1.029 1.001-1.035 Urine Protein Trace H Negative Urine Ketones Trace Negative Urine Blood Negative Negative /uL Urine Nitrite Negative Negative Urine Bilirubin Negative Negative Urine Urobilinogen Normal Negative mg/dL Urine Leukocyte Esterase Negative Negative /uL Urine RBC 17 0 - 4 /hpf Urine Microscopic WBC 1 0-5 /HPF Urine Squamous Epithelial Cells Few <5 /hpf Urine Bacteria None seen None Seen /hpf Urine Mucus Few None Seen Urine Yeast (Budding) Moderate None Seen /hpf Urine Glucose Normal Normal mg/dL Urine Opiates Screen Neg NEGATIVE Urine Fentanyl Screen Neg NEGATIVE Urine Barbiturates Screen Neg NEGATIVE Urine Phencyclidine Screen Neg NEGATIVE Urine Amphetamines Screen Neg NEGATIVE Urine Benzodiazepines Screen Neg NEGATIVE Urine Cocaine Screen Neg NEGATIVE Urine Cannabinoids Screen Neg NEGATIVE Iron Level 84 50-170 ug/dL Total Iron Binding Capacity 301 250-425 ug/dL Percent Iron Saturation 27.9 15-50 % Troponin I High Sensitivity < 3 L </=34 ng/L B-Type Natriuretic Peptide 24.45 0-100 pg/mL Thyroid Stimulating Hormone (TSH) 1.40 0.55-4.78 uIU/mL Assessment Recurrent presyncopal events Syncope x1 on 10/08/2024 Anemia Poor appetite Plan/Recommendation Monitoring Supportive treatment Telemetry EEG Orthostatic vitals Cardiology on case Syncope precautions discussed Cardiology on case GI on case More recommendation per clinical course Prognosis: Poor This medical document was created using an electronic medical record system with [employer] computerized dictation system. Although this document has been carefully reviewed, there may still be some phonetic and typographical errors. These areas are purely typographical due to imperfections of the software programs, and do not reflect any compromise in the patient's medical care. Plan discussed with: Patient, Other GWYN WANG MD Oct 04, 2024 18:03
[2024-10-04] MEDS: MORPHINE SULFATE INJ 2 MG/ml SYRG IV PRN (23:38)
[2024-10-05] VITALS (9 sets, daily range): BP systolic 111–143; BP diastolic 61–89; PULSE 50–65; RESP 16–18; TEMP 97.3–98.2; O2SAT 95–99
[2024-10-05 07:07] LABS: Anion Gap 9 (5-15); Carbon Dioxide 25 mmol/L (20-31); Sodium 144 mmol/L (136-145)
[2024-10-05 07:09] LABS: Calcium 8.9 mg/dL (8.7-10.4)
[2024-10-05 07:10] LABS: Chloride 110 mmol/L (98-107); Potassium 3.2 mmol/L (3.5-5.1)
[2024-10-05 07:12] LABS: Basophils # (auto) 0 10 ^3/uL (0-0.2); Basophils % (auto) 0.3 % (0.0-2.0); Eosinophils # (auto) 0.1 10 ^3/uL (0-0.8); Eosinophils % (auto) 1.6 % (0.0-7.0); Hematocrit 29.5 % (36.0-46.0); Hemoglobin 9.9 g/dL (12.2-16.2); Lymphocytes # (auto) 1.4 10 ^3/uL (0.4-5.4); Lymphocytes % (auto) 37.9 % (10.0-50.0); Mean Corpuscular Hemoglobin 31.8 pg (28.0-32.0); Mean Corpuscular Hgb Conc. 33.6 g/dL (32.0-36.0); Mean Corpuscular Volume 94.4 fL (80.0-100.0); Monocytes # (auto) 0.3 10 ^3/uL (0-1.3); Monocytes % (auto) 7.9 % (0.0-12.0); Neutrophils # (auto) 1.9 10 ^3/uL (1.6-8.6); Neutrophils % (auto) 52.3 % (37.0-80.0); Nucleated Red Blood Cells % 0.1 %; Platelet Count (auto) 213 10^3/uL (140-450); Red Blood Cells 3.13 10^6/uL (4.0-5.20); Red Cell Distribution Width 14.1 % (11.8-14.3); White Blood Cell 3.6 10^3/uL (4.4-10.8)
[2024-10-05 07:14] LABS: BUN/Creatinine Ratio 8.2 (10.0-20.0); Glucose 79 mg/dL (74-106)
[2024-10-05 07:33] LABS: Blood Urea Nitrogen 5 mg/dL (9-23)
--- NOTE | 2024-10-05 11:46 | DVHPN2 ---
Consult Progress Note Subjective Patient reports: Feels better Review of Systems: CVS:Normal (Denies CP, Palpitations, SOB), NEURO:Normal (denies lightheadedness) Objective vital signs Vital Sign Date Time Temp Pulse Resp B/P (MAP) Pulse Ox O2 Delivery O2 Flow Rate FiO2 10/05/24 08:50 97.6 54 16 121/73 (89) 98 97.6 10/05/24 07:55 Room Air* 0 21 Total Intake and Output 10/04/24 10/04/24 10/05/24 15:00 23:00 07:00 Intake Total 1989 ml 1520 ml Balance 1989 ml 1520 ml medications Current Medications Medications Dose Ordered Sig/Nancy Route Start Time Stop Time Status Last Admin Dose Admin Sodium Chloride 1,000 ml @ 120 mls/hr Q8H20M IV 10/02/24 23:30 10/05/24 02:00 120 MLS/HR Ondansetron HCl 4 mg Q4HP PRN IV 10/02/24 23:30 Docusate Sodium 100 mg BIDPRN PRN PO 10/02/24 23:30 Acetaminophen 650 mg Q6HP PRN PO 10/02/24 23:30 10/04/24 15:58 650 MG Morphine Sulfate 2 mg Q4HPRN PRN IV 10/02/24 23:30 10/04/24 23:38 2 MG Nitroglycerin 0.4 mg Q5MINP PRN SL 10/02/24 23:30 Morphine Sulfate 2 mg Q30M PRN IV 10/02/24 23:30 Levothyroxine Sodium 50 mcg DAILY@0630 IV 10/03/24 06:30 10/05/24 06:15 50 MCG Pantoprazole Sodium 40 mg DAILY@BREAKFAST IV 10/03/24 00:00 10/05/24 08:36 40 MG Examination: CVS:Abnormal (Telemetry consistent with sinus bradycardia 55 beats per minute, positive chronotropic response with ambulation.) laboratory and microbiology Laboratory Tests 10/05/24 06:16 Test 10/05/24 06:16 Range/Units Serum Glucose 79 74-106 mg/dL Problem List/Assessment/Plan Problem List/Assessment/Plan Syncope, rule out cardiac etiology Sinus bradycardia ?Vasovagal episode Dyslipidemia Acute on chronic anemia Hypokalemia Plan/Recommendation Case Discussed with Dr Marx. Normal EF on echo (EF 66%) no significant valvular structural abnormalities. The patient underwent a bilateral carotid Doppler study which revealed 50-69% stenosis in the left internal carotid artery. This was followed by a neck CTA which showed no evidence of stenosis, aneurysm, or dissection. After reviewing cardiac care nurse, the patient does have episodes of sinus bradycardia with PACs. No pauses or atrioventricular blocks noted. Negative orthostatic vital signs. Patient continues to be asymptomatic at this time. Positive chronotropic response with ambulation. Patient endorses that it started ever since she started taking medication for anemia that she received from [place]. Neurology on board follow up recs. At this point, no indication for permanent pacemaker implantation. Recommend outpatient follow-up for event monitoring. There is no further cardiac work-up indicated at this time. Thank you for allowing us to participate in this patient's care. Will sign off. This medical document was created using an electronic medical record system with voice recognition software and computerized dictation system. Although this document has been carefully reviewed, there might still be some phonetic and typographical errors. Occasional wrong-word or ``sound-alike substitutions may have occurred due to the inherent limitations of voice recognition software. These areas are purely typographical due to imperfections of the software programs and do not reflect any compromise in the patient's medical care. Please read the chart carefully and recognize, using context, where these substitutions have occurred. Thank you for allowing me to participate in the management of this patient. The treatment plan was discussed with and agreed upon by patient/family including requesting consultants and ordering of imaging/procedures. Plan discussed with: Patient Date of Service: Oct 05, 2024 Billing Provider: BABATUNDE REDDY Common Visit Codes: [id number] INP/OBS CARE(HIGH) BABATUNDE REDDY Oct 05, 2024 11:46
[2024-10-05] MEDS: POTASSIUM EFFERVESENT TAB 25 MEQ PO ONE (12:11)
--- NOTE | 2024-10-05 15:58 | DVHPNRES ---
Progress Note Date Seen: Oct 05, 2024 Resident Creating Document: ZUNILDA TRIPATHI RESIDENT Medical Necessity Reason Pt with a Central, PICC or Fol: No Subjective Review of Systems Patient seen and examined at bedside, dizziness improved, patient was walking with PT. Orthostatic hypotension was positive, patient heart rate was at lower side, cardiology consult. Objective vital signs Vital Sign Date Time Temp Pulse Resp B/P (MAP) Pulse Ox O2 Delivery O2 Flow Rate FiO2 10/05/24 12:51 65 18 125/65 10/05/24 12:50 98.1 96 98.1 10/05/24 07:55 Room Air* 0 21 Total Intake and Output 10/04/24 10/04/24 10/05/24 15:00 23:00 07:00 Intake Total 1990 ml 1520 ml Balance 1990 ml 1520 ml medications Current Medications Medications Dose Ordered Sig/Nancy Route Start Time Stop Time Status Last Admin Dose Admin Sodium Chloride 1,000 ml @ 120 mls/hr Q8H20M IV 10/02/24 23:30 10/05/24 02:00 120 MLS/HR Ondansetron HCl 4 mg Q4HP PRN IV 10/02/24 23:30 Docusate Sodium 100 mg BIDPRN PRN PO 10/02/24 23:30 Acetaminophen 650 mg Q6HP PRN PO 10/02/24 23:30 10/04/24 15:58 650 MG Morphine Sulfate 2 mg Q4HPRN PRN IV 10/02/24 23:30 10/05/24 12:21 2 MG Nitroglycerin 0.4 mg Q5MINP PRN SL 10/02/24 23:30 Morphine Sulfate 2 mg Q30M PRN IV 10/02/24 23:30 Levothyroxine Sodium 50 mcg DAILY@0630 IV 10/03/24 06:30 10/05/24 06:15 50 MCG Pantoprazole Sodium 40 mg DAILY@BREAKFAST IV 10/03/24 00:00 10/05/24 08:36 40 MG Examination General Appearance: Alert, Oriented X3, Cooperative, moderate distress HEENT: Atraumatic, PERRLA, EOMI, Mucous membr. moist/pink Respiratory: Clear to auscultation, Normal air movement, Other (on room air ) Cardiovascular: Regular rate, Normal S1, Normal S2, No murmurs, Other (NSR, HR low normal in 50s/min) Abdominal: Normal bowel sounds, Soft, No tenderness, No hepatospenomegaly, No masses Extremities: No clubbing, No cyanosis, No edema, Normal pulses, No tenderness/swelling Skin: No rashes, No breakdown, No significant lesion Psych/Mental Status: Mental status NL, Mood NL, Other laboratory and microbiology Laboratory Tests 10/05/24 06:16 Test 10/05/24 06:16 Range/Units Serum Glucose 79 74-106 mg/dL Problem List/Assessment/Plan Problem List/Assessment/Plan Ruled out acute stroke Chronic small-vessel ischemia Head CT unremarkable for acute intracranial abnormality shows mild nonspecific white matter disease likely chronic small-vessel ischemia. MRI brain shows no acute CVA. Mild chronic ischemic changes. Neuro consult: Ordered EEG Recurrent syncope rule out cardiac causes Rule out arrhythmias versus structural heart disease Rule out orthostatic hypotension Rulef out ACS Carotid Doppler shows 50-69% stenosis of the left ICA. No hemodynamically significant stenosis in the right. CT angio shows No evidence of stenosis, aneurysm, or dissection. Echocardiogram shows grade 1 diastolic dysfunction, normal RV function, LA enlarged, no severe valve abnormalities NS 120 mL/hour ? Symptomatic Sinus bradycardia Patient on telemetry unit Avoid beta venus and calcium channel venus Unintentional weight loss -GI consulted-recommended outpatient workup # chronic stroke, Chronic small-vessel ischemia # Ruled out acute stroke Head CT unremarkable for acute intracranial abnormality shows mild nonspecific white matter disease likely chronic small-vessel ischemia. MRI brain shows no acute CVA. Mild chronic ischemic changes. # Recurrent syncope rule out cardiac causes # Rule out arrhythmias versus structural heart disease # Rule out orthostatic hypotension # Rulef out ACS - cardiology consult appreciated -Carotid Doppler shows 50-69% stenosis of the left ICA. No hemodynamically significant stenosis in the right. -CT angio shows No evidence of stenosis, aneurysm, or dissection. -Echocardiogram shows grade 1 diastolic dysfunction, normal RV function, LA enlarged, no severe valve abnormalities, EF 66% - NS 120 mL/hour # ? Symptomatic Sinus bradycardia - cardiology consult appreciated - Patient on telemetry unit Avoid beta venus and calcium channel venus # Unintentional weight loss -GI consulted-recommended outpatient workup # Ruled out DVT - Lower extremity Doppler unremarkable # Hypothyroidism - Continue levothyroxine 50 mcg daily # Hypokalemia -replenished # Dyslipidemia -Atorvastatin 40 mg HS daily # History of peptic ulcer disease # History of hiatal hernia -GI consult appreciated -continue home medication Protonix 40 mg daily # Chronic anemia, likely iron-deficiency -continue oral iron supplementation with 325 mg daily -GI consult appreciated # Chronic back pain -continue pain management # History of hernia repair # History of left oophorectomy -monitor Goals of care discussed with patient for 18 minutes, full code Case discussed with Dr. Gomez Ruled out DVT Lower extremity Doppler unremarkable Hypothyroidism Continue levothyroxine 50 mcg daily Hypokalemia Supplemented Magnesium in a.m. Dyslipidemia Atorvastatin 40 mg HS daily History of peptic ulcer disease History of hiatal hernia -continue home medication Protonix 40 mg daily Chronic anemia, likely iron-deficiency -continue oral iron supplementation with 325 mg daily Chronic back pain -continue pain management History of hernia repair History of left oophorectomy -monitor Plan discussed with patient in which all questions have been answered Goals of care discussed with patient for 19 minutes, full code status Case discussed with Dr. Gomez Plan discussed with: Patient Date of Service: Oct 05, 2024 Billing Provider: KENJI GOMEZ MD Common Visit Codes: [id number] INP/OBS CARE(HIGH) ZUNILDA TRIPATHI RESIDENT Oct 05, 2024 15:57 KENJI GOMEZ MD Oct 05, 2024 22:20
--- NOTE | 2024-10-05 21:59 | DVHPN2 ---
Progress Note - Dictate Date Seen: Oct 05, 2024 Medical Necessity Reason Pt with a Central, PICC or Fol: No Subjective Ms. Han is a 59 years old right-handed female with a history of hypothyroidism, anemia, peptic ulcer disease, gastritis, colitis, she came to the [facility] on 10/02/2024 with a chief company of syncopal episodes. I have seen and examined the patient, I have discussed with her nurse, she is doing fine, alert and fully oriented, no new complaints She walks around with no dizziness No new complaints Orthostatic vitals were negative UDS, 10/02/2024: Negative Plasma alcohol, 10/03/24: 3.2 Urinalysis, 10/02/2024: WBC: 1, urine leukocyte esterase: Negative WBC/HB/PLT/MCV, 10/04/2024: 4.3/10.1/221/94.2 CMP, 10/03/2024: Unremarkable HGB A1c, 10/03/24: 3.8 TG/HDL/LDL/HDL, 10/03/2024: 65/209/132/63 Vitamin B12, 10/03/24: 382 Folic acid, 10/04/2024: 8.52 TSH, 10/02/34: 1.4 CTA neck, 10/03/2024: No evidence of stenosis, aneurysm, or dissection. MRI head, 10/03/2024: 1. No acute cerebrovascular ischemia. 2. Mild chronic microvascular ischemic changes. vital signs Vital Sign Date Time Temp Pulse Resp B/P (MAP) Pulse Ox O2 Delivery O2 Flow Rate FiO2 10/05/24 16:50 98.2 62 16 126/61 (82) 96 98.2 10/05/24 07:55 Room Air* 0 21 Total Intake and Output 10/04/24 10/04/24 10/05/24 15:00 23:00 07:00 Intake Total 1990 ml 1520 ml Balance 1990 ml 1520 ml medications Current Medications Medications Dose Ordered Sig/Nancy Route Start Time Stop Time Status Last Admin Dose Admin Sodium Chloride 1,000 ml @ 120 mls/hr Q8H20M IV 10/02/24 23:30 10/05/24 18:09 120 MLS/HR Ondansetron HCl 4 mg Q4HP PRN IV 10/02/24 23:30 Docusate Sodium 100 mg BIDPRN PRN PO 10/02/24 23:30 Acetaminophen 650 mg Q6HP PRN PO 10/02/24 23:30 10/04/24 15:58 650 MG Morphine Sulfate 2 mg Q4HPRN PRN IV 10/02/24 23:30 10/05/24 12:21 2 MG Nitroglycerin 0.4 mg Q5MINP PRN SL 10/02/24 23:30 Morphine Sulfate 2 mg Q30M PRN IV 10/02/24 23:30 Levothyroxine Sodium 50 mcg DAILY@0630 IV 10/03/24 06:30 10/05/24 06:15 50 MCG Pantoprazole Sodium 40 mg DAILY@BREAKFAST IV 10/03/24 00:00 10/05/24 08:36 40 MG objective General: the patient is well developed and nourished. No acute distress. MENTAL STATUS: Subjective SPEECH, LANGUAGE, HIGHER CORTICAL FUNCTION: no aphasia or dysathria. CRANIAL NERVES: Pupils are equal, round and reactive. EOMs full and conjugate. Mild bilateral gaze evoked nystagmus. Facial sensation intact in all three divisions bilaterally. Mandibular strength intact. Facial muscles symmetrical and strength intact. SENSATION: Sensation to touch and pinprick is normal. MOTOR: Normal tone in the upper and lower extremity. Normal muscle bulk. No fasciculations. No abnormal movements or posturing. Muscle strength of the major groups in the extremities is 5/5. REFLEXES: Deep tendon reflexes are symmetrical. No pathological reflexes. CEREBELLAR/COORDINATION: Finger to nose is normal bilaterally. GAIT/STATION: deferred. laboratory and microbiology Laboratory Tests 10/05/24 06:16 Test 10/05/24 06:16 Range/Units Serum Glucose 79 74-106 mg/dL Problem List Recurrent presyncopal events Syncope x1 on 10/08/2024 Anemia Bradycardia Poor appetite Assessment/Plan Monitoring Supportive treatment Telemetry EEG Cardiology on case Syncope precautions discussed Cardiology on case GI on case More recommendation per clinical course This medical document was created using an electronic medical record system with [employer] dictation system. Although this document has been carefully reviewed, there may still be some phonetic and typographical errors. These areas are purely typographical due to imperfections of the software programs, and do not reflect any compromise in the patient's medical care. Plan discussed with: Patient, Other GWYN WANG MD Oct 05, 2024 21:59
[2024-10-06] VITALS (8 sets, daily range): BP systolic 107–136; BP diastolic 44–71; PULSE 52–63; RESP 16–17; TEMP 97.8–98.7; O2SAT 94–99
[2024-10-06 07:21] LABS: Basophils # (auto) 0 10 ^3/uL (0-0.2); Basophils % (auto) 0.2 % (0.0-2.0); Eosinophils # (auto) 0.1 10 ^3/uL (0-0.8); Eosinophils % (auto) 1.1 % (0.0-7.0); Hematocrit 29.8 % (36.0-46.0); Lymphocytes # (auto) 1.2 10 ^3/uL (0.4-5.4); Lymphocytes % (auto) 26.4 % (10.0-50.0); Mean Corpuscular Hemoglobin 31.6 pg (28.0-32.0); Mean Corpuscular Hgb Conc. 33.4 g/dL (32.0-36.0); Mean Corpuscular Volume 94.6 fL (80.0-100.0); Monocytes # (auto) 0.4 10 ^3/uL (0-1.3); Monocytes % (auto) 8.1 % (0.0-12.0); Neutrophils % (auto) 64.2 % (37.0-80.0); Nucleated Red Blood Cells % 0.1 %; Platelet Count (auto) 209 10^3/uL (140-450); Red Blood Cells 3.15 10^6/uL (4.0-5.20); White Blood Cell 4.7 10^3/uL (4.4-10.8)
[2024-10-06 07:40] LABS: Potassium 3.7 mmol/L (3.5-5.1); Sodium 144 mmol/L (136-145)
[2024-10-06 07:41] LABS: Anion Gap 7 (5-15); Carbon Dioxide 27 mmol/L (20-31)
[2024-10-06 07:42] LABS: Calcium 9.6 mg/dL (8.7-10.4)
[2024-10-06 07:47] LABS: BUN/Creatinine Ratio 10.4 (10.0-20.0); Glucose 95 mg/dL (74-106)
[2024-10-06 07:51] LABS: Blood Urea Nitrogen 7 mg/dL (9-23); Chloride 110 mmol/L (98-107)
--- NOTE | 2024-10-06 13:05 | DVHPN2 ---
Subjective Doing well No new complaints EEG is pending Changes from previous H/P or p: Changes Eyes: No Pain, No Vision change, No Conjunctivae inflammation, No Eyelid inflammation, No Other, No Redness ENT: No Ear pain, No Ear discharge, No Nose pain, No Nose discharge, No Nose congestion, No Mouth pain, No Mouth swelling, No Throat pain, No Throat swelling, No Other Cardiovascular: No Chest Pain, No Palpitations, No Orthopnea, No Paroxysmal Noc. Dyspnea, No Edema; Lt Headedness; No Other Respiratory: No Cough, No Dry, No Shortness of breath, No SOB with excertion, No Wheezing, No Hemoptysis, No Pleuritic Pain, No Sputum, No Other Gastrointestinal: No Nausea, No Vomiting, No Abdominal Pain, No Diarrhea, No Constipation, No Melena, No Hematochezia, No Other Genitourinary: No Dysuria, No Frequency, No Incontinence, No Hematuria, No Retention, No Other Musculoskeletal: No other, No neck pain, No shoulder pain, No arm pain; back pain; No hand pain, No leg pain, No foot pain Skin: No Rash, No Lesions, No Jaundice, No Bruising, No Other Objective Vitals Vital Signs Date Time Temp Pulse Resp B/P (MAP) Pulse Ox O2 Delivery O2 Flow Rate FiO2 10/06/24 12:30 98.7 63 16 112/56 (74) 97 98.7 10/05/24 20:00 Room Air* 0 21 Intake/Output Intake and Output 10/06/24 07:00 Intake Total 2468 ml Balance 2468 ml Intake Oral 1268 ml IV Total 1200 ml # Voids 12 # Bowel Movements 1 General Appearance: Alert, Oriented X3, Cooperative Lungs: Clear to auscultation, Normal air movement Cardiovascular: Regular rate, Normal S1, Normal S2 Extremities: No edema Medications Current Medications Medications Dose Ordered Sig/Nancy Route Start Time Stop Time Status Last Admin Dose Admin Sodium Chloride 1,000 ml @ 120 mls/hr Q8H20M IV 10/02/24 23:30 10/06/24 10:56 120 MLS/HR Ondansetron HCl 4 mg Q4HP PRN IV 10/02/24 23:30 Docusate Sodium 100 mg BIDPRN PRN PO 10/02/24 23:30 Acetaminophen 650 mg Q6HP PRN PO 10/02/24 23:30 10/04/24 15:58 650 MG Morphine Sulfate 2 mg Q4HPRN PRN IV 10/02/24 23:30 10/05/24 12:21 2 MG Nitroglycerin 0.4 mg Q5MINP PRN SL 10/02/24 23:30 Morphine Sulfate 2 mg Q30M PRN IV 10/02/24 23:30 Levothyroxine Sodium 50 mcg DAILY@0630 IV 10/03/24 06:30 10/06/24 05:35 50 MCG Pantoprazole Sodium 40 mg DAILY@BREAKFAST IV 10/03/24 00:00 10/06/24 09:46 40 MG Laboratory Results Laboratory Tests 10/06/24 06:50 Chemistry Test 10/06/24 06:50 Calcium Level 9.6 mg/dL (8.7-10.4) Urinalysis Test 10/02/24 22:00 Urine Color Dark-yellow (Yellow) Urine Clarity Clear (Clear) Urine pH 5.5 (5.0-9.0) Urine Specific [place] 1.029 (1.001-1.035) Urine Protein Trace (Negative) H Urine Ketones Trace (Negative) Urine Blood Negative /uL (Negative) Urine Nitrite Negative (Negative) Urine Bilirubin Negative (Negative) Urine Urobilinogen Normal mg/dL (Negative) Urine Leukocyte Esterase Negative /uL (Negative) Urine RBC 17 /hpf (0 - 4) Urine Microscopic WBC 1 /HPF (0-5) Urine Squamous Epithelial Cells Few /hpf (<5) Urine Bacteria None seen /hpf (None Seen) Urine Mucus Few (None Seen) Urine Yeast (Budding) Moderate /hpf (None Seen) Urine Glucose Normal mg/dL (Normal) Assessment/Plan Assessment/Plan Syncope , recurrent Dizziness Chronic small-vessel ischemia Anemia Bradycardia Poor appetite Unintentional weight loss Hypokalemia Hypomagnesemia Plan EEG is done, pending result IV fluids normal saline Continue levothyroxine Monitor closely The rest of the management will depend on the hospital course Plan discussed with: Patient Date of Service: Oct 06, 2024 Billing Provider: KENJI MUNOZ MD Common Visit Codes: [id number] INP/OBS CARE(HIGH) KENJI MUNOZ MD Oct 06, 2024 13:05
--- NOTE | 2024-10-06 17:12 | DVHPN2 ---
Progress Note - Dictate Date Seen: Oct 06, 2024 Medical Necessity Reason Pt with a Central, PICC or Fol: No Subjective No new complaints Patient awake alert in no acute distress Patient is tolerating a regular diet She denies any GI bleeding H&H is stable at 10 Stool for occult blood is negative vital signs Vital Sign Date Time Temp Pulse Resp B/P (MAP) Pulse Ox O2 Delivery O2 Flow Rate FiO2 10/06/24 12:30 98.7 63 16 112/56 (74) 97 98.7 10/06/24 08:00 Room Air* 0 21 Total Intake and Output 10/05/24 10/05/24 10/06/24 15:00 23:00 07:00 Intake Total 118 ml 450 ml 1900 ml Balance 118 ml 450 ml 1900 ml medications Current Medications Medications Dose Ordered Sig/Nancy Route Start Time Stop Time Status Last Admin Dose Admin Sodium Chloride 1,000 ml @ 120 mls/hr Q8H20M IV 10/02/24 23:30 10/06/24 10:56 120 MLS/HR Ondansetron HCl 4 mg Q4HP PRN IV 10/02/24 23:30 Docusate Sodium 100 mg BIDPRN PRN PO 10/02/24 23:30 Acetaminophen 650 mg Q6HP PRN PO 10/02/24 23:30 10/04/24 15:58 650 MG Morphine Sulfate 2 mg Q4HPRN PRN IV 10/02/24 23:30 10/05/24 12:21 2 MG Nitroglycerin 0.4 mg Q5MINP PRN SL 10/02/24 23:30 Morphine Sulfate 2 mg Q30M PRN IV 10/02/24 23:30 Levothyroxine Sodium 50 mcg DAILY@0630 IV 10/03/24 06:30 10/06/24 05:35 50 MCG Pantoprazole Sodium 40 mg DAILY@BREAKFAST IV 10/03/24 00:00 10/06/24 09:46 40 MG objective General Appearance: Alert, Oriented X3, Cooperative, no distress; HEENT: Atraumatic, PERRLA, EOMI, Mucous membr. moist/pink Respiratory: Clear to auscultation, Normal air movement, Other (on room air ) Cardiovascular: Regular rate, Normal S1, Normal S2, No murmurs, Other (NSR, HR low normal in 50s/min) Abdominal: Normal bowel sounds, Soft, No tenderness, No hepatospenomegaly, No masses Extremities: No clubbing, No cyanosis, No edema, Normal pulses, No tenderness/swelling Skin: No rashes, No breakdown, No significant lesion Psych/Mental Status: Mental status NL, Mood NL, Other laboratory and microbiology Laboratory Tests 10/06/24 06:50 Test 10/06/24 06:50 Range/Units Serum Glucose 95 74-106 mg/dL Problems(with codes): (1) Bradycardia (2) Shortness of breath (3) Pneumonia Prognosis Plan Patient is undergoing neurological and cardiac workup Patient does not need any further GI workup at this time I will follow this patient with you as needed Monitor labs Plan discussed with: Patient KOBI MONTANA MD Oct 06, 2024 17:11
[2024-10-07 01:00] VITALS: BP 110/57; PULSE 64; RESP 15; TEMP 97.9; O2SAT 98
[2024-10-07 05:00] VITALS: BP_SYST 0; BP_SYST 128; BP_DIAS 62; PULSE 52; RESP 16; TEMP 97.9; O2SAT 92
[2024-10-07 08:00] VITALS: PULSE 57; PULSE 61; O2SAT 99
[2024-10-07 08:54] VITALS: BP 132/47; PULSE 59; RESP 16; TEMP 97.9; O2SAT 94
[2024-10-07] MEDS ORDERED: PANT40TA2 PO (11:19)
--- NOTE | 2024-10-07 11:28 | DVHDSRES ---
Discharge Summary Date of Admission Resident Creating Document: ZUNILDA TRIPATHI RESIDENT Oct 02, 2024 at 23:29 Date of Discharge: Oct 07, 2024 Admitting Diagnosis Dizziness, syncope Labs/Diagnostic Data: Laboratory Results Test 10/06/24 06:50 10/05/24 10:07 10/04/24 05:57 10/03/24 08:08 White Blood Count 4.7 10^3/uL (4.4-10.8) Red Blood Count 3.15 10^6/uL (4.0-5.20) Hemoglobin 10.0 g/dL (12.2-16.2) Hematocrit 29.8 % (36.0-46.0) Mean Corpuscular Volume 94.6 fL (80.0-100.0) Mean Corpuscular Hemoglobin 31.6 pg (28.0-32.0) Mean Corpuscular Hemoglobin Concent 33.4 g/dL (32.0-36.0) Red Cell Distribution Width 14.0 % (11.8-14.3) Platelet Count 209 10^3/uL (140-450) Mean Platelet Volume 7.4 fL (6.9-10.8) Neutrophils (%) (Auto) 64.2 % (37.0-80.0) Lymphocytes (%) (Auto) 26.4 % (10.0-50.0) Monocytes (%) (Auto) 8.1 % (0.0-12.0) Eosinophils (%) (Auto) 1.1 % (0.0-7.0) Basophils (%) (Auto) 0.2 % (0.0-2.0) Neutrophils # (Auto) 3.0 10 ^3/uL (1.6-8.6) Lymphocytes # (Auto) 1.2 10 ^3/uL (0.4-5.4) Monocytes # (Auto) 0.4 10 ^3/uL (0-1.3) Eosinophils # (Auto) 0.1 10 ^3/uL (0-0.8) Basophils # (Auto) 0 10 ^3/uL (0-0.2) Nucleated Red Blood Cells 0.1 % Sodium Level 144 mmol/L (136-145) Potassium Level 3.7 mmol/L (3.5-5.1) Chloride Level 110 mmol/L (98-107) Carbon Dioxide Level 27 mmol/L (20-31) Anion Gap 7 (5-15) Blood Urea Nitrogen 7 mg/dL (9-23) Creatinine 0.67 mg/dL (0.550-1.02) Glomerular Filtration Rate Calc 100 mL/min (>90) BUN/Creatinine Ratio 10.4 (10.0-20.0) Serum Glucose 95 mg/dL (74-106) Calcium Level 9.6 mg/dL (8.7-10.4) Stool Occult Blood Sample #3 Negative (Negative) Magnesium Level 1.9 mg/dL (1.6-2.6) Folic Acid 8.52 ng/mL (>5.38) Hemoglobin A1c < 3.8 % A1C (<5.7) Ferritin 43.3 ng/mL (10-291) Total Bilirubin 0.5 mg/dL (0.2-1.0) Aspartate Amino Transferase (AST) 18 U/L (0-34) Alanine Aminotransferase (ALT) 13 U/L (7-40) Alkaline Phosphatase 108 U/L (46-116) Total Protein 6.4 g/dL (5.7-8.2) Albumin 4.1 g/dL (3.2-4.8) Triglycerides Level 65 mg/dL (< 150) Cholesterol Level 209 mg/dL (< 200) LDL Cholesterol 132 mg/dL (< 100) HDL Cholesterol 63 mg/dL (40-59) Vitamin B12 Level 382 pg/mL (211-911) Cortisol AM Sample 14.87 ug/dL (5.27-22.45) Plasma/Serum Blood Alcohol 3.2 mg/dL (<10) Test 10/02/24 22:00 10/02/24 18:39 Urine Color Dark-yellow (Yellow) Urine Clarity Clear (Clear) Urine pH 5.5 (5.0-9.0) Urine Specific [place] 1.029 (1.001-1.035) Urine Protein Trace (Negative) Urine Ketones Trace (Negative) Urine Blood Negative /uL (Negative) Urine Nitrite Negative (Negative) Urine Bilirubin Negative (Negative) Urine Urobilinogen Normal mg/dL (Negative) Urine Leukocyte Esterase Negative /uL (Negative) Urine RBC 17 /hpf (0 - 4) Urine Microscopic WBC 1 /HPF (0-5) Urine Squamous Epithelial Cells Few /hpf (<5) Urine Bacteria None seen /hpf (None Seen) Urine Mucus Few (None Seen) Urine Yeast (Budding) Moderate /hpf (None Seen) Urine Glucose Normal mg/dL (Normal) Urine Opiates Screen Neg (NEGATIVE) Urine Fentanyl Screen Neg (NEGATIVE) Urine Barbiturates Screen Neg (NEGATIVE) Urine Phencyclidine Screen Neg (NEGATIVE) Urine Amphetamines Screen Neg (NEGATIVE) Urine Benzodiazepines Screen Neg (NEGATIVE) Urine Cocaine Screen Neg (NEGATIVE) Urine Cannabinoids Screen Neg (NEGATIVE) Iron Level 84 ug/dL (50-170) Total Iron Binding Capacity 301 ug/dL (250-425) Percent Iron Saturation 27.9 % (15-50) Troponin I High Sensitivity < 3 ng/L (</=34) B-Type Natriuretic Peptide 24.45 pg/mL (0-100) Thyroid Stimulating Hormone (TSH) 1.40 uIU/mL (0.55-4.78) Other Laboratory Tests 10/06/24 06:50 Brief Hx & Hospital Course: HPI: 59-year-old Belarusian-speaking female with a history of anemia, gastrointestinal disorders (including PUD, gastritis, colitis), hypothyroidism, chronic back pain, likely osteoarthritis, Hernia Repair and Left oophorectomy presents with a two-week history of recurrent dizziness and syncopal episodes, typically triggered by standing, and accompanied by headache, lightheadedness, fatigue, shortness of breath, and bilateral ear ringing. Her most recent episode occurred the previous night in the bathroom, resulting in a fall and head injury. She denies nausea, vomiting, bleeding, fever, or recent illness. Due to concerns for underlying acute neurovascular conditions, she was referred to the ED by her PCP and has been admitted for further evaluation and monitoring. Admitted on telemetry floor, for continued dizziness and multiple syncopal episodes, with differential diagnoses including syncope (cardiac or neurovascular), structural heart disease, hypovolemia, arrhythmia, acute coronary syndrome, orthostatic hypotension, posterior column disease, TIA, cerebellar/inner ear disorders, pulmonary embolism, aortic dissection, seizure, and basilar stroke. PCP Dr. Leiva, Pain Specialist Dr. Fernandez. Extremely poor historian. Past medical history: anemia, gastrointestinal disorders (including PUD, gastritis, colitis), hypothyroidism, chronic back pain, likely osteoarthritis Past surgical history: Hernia repair and left oophorectomy Social history: Denies smoking, drinking, drug use. Lives with family. Summary: Head CT unremarkable for acute intracranial abnormality shows mild nonspecific white matter disease likely chronic small-vessel ischemia. MRI brain shows no acute CVA. Neurology on board, EEG was done. Mild chronic ischemic changes. Normal EF on echo (EF 66%) no significant valvular structural abnormalities. The patient underwent a bilateral carotid Doppler study which revealed 50-69% stenosis in the left internal carotid artery. This was followed by a neck CTA which showed no evidence of stenosis, aneurysm, or dissection. 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 No pauses or atrioventricular blocks noted. Negative orthostatic vital signs. Patient continues to be asymptomatic at this time. Cardiology consultation appreciated, no indication for permanent pacemaker implantation, follow up with button tacker outpatient due to asymptomatic bradycardia, patient also has history of PUD, chronic anemia, GI consult appreciated : Patient has had recent GI workup which has essentially been negative , Anemia workup negative with normal vitamin B12 iron panel folate levels and ferritin .Stool for occult blood is Negative, continue IV Protonix 40 mg daily . Patient denies any dizziness today patient is walking and has no problem, dynamically stable, vitals and labs were normal. Patient is going to be discharged home with Protonix 40 mg daily, strongly recommended to follow up with outpatient Cardiology and GI, with PCP in 1-2 weeks. Condition at Discharge: Fair Final Diagnosis/Problems List # Ruled out acute stroke # Chronic small-vessel ischemia # Recurrent syncope ruled out cardiac causes # ?Vasovagal episode # Ruled out arrhythmias versus structural heart disease # Ruled out orthostatic hypotension # Ruled out ACS # Ruled out DVT # Asymptomatic Sinus bradycardia # Unintentional weight loss secondary to poor appetite # Hypothyroidism # Hypokalemia - resolved # Hypomagnesemia - Resolve # Dyslipidemia # History of peptic ulcer disease # History of hiatal hernia # Chronic anemia, likely iron-deficiency # Chronic back pain # History of hernia repair # History of left oophorectomy Discharge Disposition: Home SNF Discharge Will this Physician continue t: No Discharge Instruct/Medications Diet: Regular Activity: No Restrictions, As Tolerated Follow Up/Referral: See below Medications: See Below Care Plan: - Follow up with out pt button tacker for Bradycardia - Follow up with out pt GI - Follow up with PCP in 1-2 weeks - Protonix 40 mg daily x 30 days - Resume other home medication, avoid beta venus due to low HR - Fall precaution Discharge Statement: "Patient was advised to return to the ER or call 911 if any headaches, dizziness, shortness of breath, chest pain, abdominal pain, bleeding, fevers, or worsening of medical condition. Patient was counseled about treatment plan, medications, possible side effects, patientverbalized understanding. All questions were answered to the best of my ability. This discharge took greater then 30 minutes in planning, reviewing documentation, counseling the patient, and discussing with other team members." ASSESSMENT ASSESSMENT Assessment # Ruled out acute stroke # Chronic small-vessel ischemia # Recurrent syncope ruled out cardiac causes # Ruled out arrhythmias versus structural heart disease # Ruled out orthostatic hypotension # Ruled out ACS # Ruled out DVT # Asymptomatic Sinus bradycardia # Unintentional weight loss secondary to poor appetite # Hypothyroidism # Hypokalemia - resolved # Hypomagnesemia - Resolve # Dyslipidemia # History of peptic ulcer disease # History of hiatal hernia # Chronic anemia, likely iron-deficiency # Chronic back pain # History of hernia repair # History of left oophorectomy ZUNILDA TRIPATHI RESIDENT Oct 07, 2024 11:28
[2024-10-07 13:00] VITALS: BP 135/49; PULSE 60; RESP 16; TEMP 98.1; O2SAT 95
--- NOTE | 2024-10-07 13:05 | ECG ---
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
--- NOTE | 2024-10-10 21:35 | DVHEEG2 ---
Neurology EEG Procedural Note Procedural Note EXAM DATE: 10/06/2024 REFERRING DOCTOR: Dr. Wang TECHNIQUE: Eighteen channels of EEG, 2 channels of EOG, and 1 channel of EKG were recorded using the [employer] 10/20 system. CLINICAL DATA: The patient was referred for an EEG evaluation for the evidence of seizure disorder. MEDICATIONS: See the chart BACKGROUND ACTIVITY: While the patient was awake, the background activity consisted of well regulated 11 Hz rhythmic waveforms, symmetrically distributed over both posterior quadrants and was reactive to eye opening. ACTIVATION: Hyperventilation: Not done Photic Stimulation: No photic convulsive response Sleep: Not seen IMPRESSION: This is a normal EEG. No focal, lateralized, or epileptiform features are noted. If clinically indicated to rule out a seizure disorder, recommend repeat EEG with sleep deprivation. The EKG channel showed a regular heart rate of 60/minute [place] [address] GWYN WANG MD Oct 10, 2024 21:35
== END 2024-10-07 16:37 | disposition home or self-care (01) | DRG 48 ==
LOC: ER 18:11 → OVERFLOW 23:29 → TELE-WESTW 10-03 05:47
PROVIDERS: ADMIT Student in an Organized Health Care Education/Training Program; ATTEND Emergency Medicine
DX: G90.89 Other disorders of autonomic nervous system (principal); D50.9 Iron deficiency anemia, unspecified; R42 Dizziness and giddiness; R63.4 Abnormal weight loss; E03.9 Hypothyroidism, unspecified; E87.6 Hypokalemia; R00.1 Bradycardia, unspecified; E78.5 Hyperlipidemia, unspecified; E83.42 Hypomagnesemia; G89.29 Other chronic pain; M54.9 Dorsalgia, unspecified; Z79.890 Hormone replacement therapy; Z68.1 Body mass index [BMI] 19.9 or less, adult; Z87.11 Personal history of peptic ulcer disease; Z86.73 Personal history of transient ischemic attack (TIA), and cerebral infarction without residual deficits; Z90.721 Acquired absence of ovaries, unilateral; Z86.0100 Personal history of colon polyps, unspecified; Z82.49 Family history of ischemic heart disease and other diseases of the circulatory system; Z80.0 Family history of malignant neoplasm of digestive organs; W18.39XA Other fall on same level, initial encounter; Y93.89 Activity, other specified; Y92.89 Other specified places as the place of occurrence of the external cause; Y99.8 Other external cause status; I65.22 Occlusion and stenosis of left carotid artery
CPT/HCPCS: 36415; 70450; 70498; 70551; 71045; 74176; 80048; 80053; 80061; 80307; 80320; 81001; 82270; 82533; 82607; 82728; 82746; 83036; 83540; 83550; 83735; 83880; 84443; 84484; 85025; 92610; 93005; 93306; 93886; 93970; 95819; 96361; 96374; 97110; 97116; 97163; 97530; G0378; J2470; J3490